=== PATIENT | male | born 1970 | race Hispanic/Latino ===

== ENCOUNTER 2021-10-04 14:23 | Emergency (ER) | payer OTHER, MEDICARE ==
[~2021-10-04] VITALS: Ht 152.4 cm; Wt 68.0 kg
[~2021-10-04 14:23] MED LIST: CEPH500C2 PO; CLON1TAB23 PO; D-ME118S56 PO; DIVA-78 PO; FOLI1TAB26 PO; LEVO500T90 PO; LEVO88TA7 PO; LORA-699 PO; OXYB10TA30 PO; PROM118S5 PO; RISP0.5T66 PO; ROSU10TA22 PO; SERT-440 PO; TAMS0.4C32 PO
[2021-10-04 14:25] VITALS: BP 101/65
[2021-10-04] MEDS ORDERED: 0.9%NACL 1000ML 1,000 ML IV ONE ×2 (15:30→17:04)
[2021-10-04 15:52] LABS: BASOPHILS % (AUTO) 0.3 % (0.0-5.0); EOSINOPHILS % (AUTO) 0.3 % (0.0-8.0); LYMPHOCYTES % (AUTO) 27.5 % (21.0-51.0); MEAN CORPUSCULAR HEMOGLOBIN 34.2 pg (27.0-33.0); MEAN CORPUSCULAR VOLUME 100.5 fL (79-99); MONOCYTES % (AUTO) 9.3 % (3.0-13.0); NEUTROPHILS % (AUTO) 61.8 % (40.0-77.0); PLATELET COUNT (AUTO) 149 K/uL (130-400); RED BLOOD CELL COUNT(AUTO) 3.98 MIL/uL (4.50-6.20); RED CELL DISTRIBUTION WIDTH 13.7 % (11.0-15.5); WHITE BLOOD COUNT (AUTO) 3.6 K/uL (4.8-10.8)
[2021-10-04 16:00] LABS: CARBON DIOXIDE 31 mmol/L (21-32); CHLORIDE 105 mmol/L (101-111); GLOMERULAR FILTR. RATE CALC 83 mL/min (>60); GLUCOSE,RANDOM 96 mg/dL (70-105); POTASSIUM 3.9 mmol/L (3.5-5.1); SODIUM SERUM 144 mmol/L (136-145); UREA NITROGEN, BLOOD 16 mg/dL (7-18)
[2021-10-04 16:13] LABS: ALANINE AMINOTRANSFERASE 30 U/L (12-78); ALBUMIN 2.9 g/dL (3.5-5.0); ASPARTATE AMINOTRANSFERASE 36 U/L (10-37); BILIRUBIN,TOTAL 0.5 mg/dL (0.2-1.0); TOTAL PROTEIN, SERUM 6.9 g/dL (6.0-8.3)
[2021-10-04 16:15] LABS: CRP QUANTITATIVE < 2.00 mg/L (0.00-9.0)
[2021-10-04 16:16] LABS: CREATINE KINASE, TOTAL 495 U/L (21-232)
== END 2021-10-04 18:28 | disposition home or self-care (01) ==
LOC: EDH 14:23
DX: R53.1 Weakness (principal); Z20.822 Contact with and (suspected) exposure to COVID-19; E03.9 Hypothyroidism, unspecified; R41.82 Altered mental status, unspecified; K21.9 Gastro-esophageal reflux disease without esophagitis; Z79.899 Other long term (current) drug therapy; Z90.49 Acquired absence of other specified parts of digestive tract
CPT/HCPCS: 36415; 71045; 80053; 82550; 83735; 84484; 85025; 86140; 87635; 96360; 99284; C9803; J7030

== ENCOUNTER 2021-12-14 08:24 | Emergency (ER) | payer OTHER, MEDICARE ==
[~2021-12-14] VITALS: Ht 160 cm; Wt 59.0 kg
[2021-12-14 08:58] LABS: BASOPHILS % (AUTO) 1.2 % (0.0-5.0); EOSINOPHILS % (AUTO) 0.8 % (0.0-8.0); HEMATOCRIT 42.7 % (42-54); LYMPHOCYTES % (AUTO) 43.7 % (21.0-51.0); MEAN CORPUSCULAR HEMOGLOBIN 34.2 pg (27.0-33.0); MEAN CORPUSCULAR HGB CONC 34.4 g/dL (32.0-36.0); MEAN CORPUSCULAR VOLUME 99.3 fL (79-99); MONOCYTES % (AUTO) 11.3 % (3.0-13.0); NEUTROPHILS % (AUTO) 42.2 % (40.0-77.0); PLATELET COUNT (AUTO) 184 K/uL (130-400); RED CELL DISTRIBUTION WIDTH 13.9 % (11.0-15.5); WHITE BLOOD COUNT (AUTO) 2.5 K/uL (4.8-10.8)
[2021-12-14 09:13] LABS: ALANINE AMINOTRANSFERASE 29 U/L (12-78); ALBUMIN 3.1 g/dL (3.5-5.0); ASPARTATE AMINOTRANSFERASE 17 U/L (10-37); BILIRUBIN,TOTAL 0.7 mg/dL (0.2-1.0); CARBON DIOXIDE 30 mmol/L (21-32); CHLORIDE 104 mmol/L (101-111); CREATININE 1.1 mg/dL (0.5-1.5); GLOMERULAR FILTR. RATE CALC 75 mL/min (>60); GLUCOSE,RANDOM 106 mg/dL (70-105); POTASSIUM 3.9 mmol/L (3.5-5.1); SODIUM SERUM 141 mmol/L (136-145); TOTAL PROTEIN, SERUM 7.5 g/dL (6.0-8.3); UREA NITROGEN, BLOOD 11 mg/dL (7-18)
[2021-12-14 09:18] LABS: VALPROIC ACID < 3 mcg/mL (50-100)
[2021-12-14 10:01] LABS: BASOPHILS % (MANUAL) 3 % (0-2); LYMPHOCYTES % (MANUAL) 48 % (22-44); MAN.DIFF COMMENT-IMPRESSION MANUAL DIFFERENTIAL; MONOCYTES % (MANUAL) 10 % (2-9); PLATELET MORPHOLOGY COMMENT ADEQUATE; REACTIVE LYMPHOCYTES 4 % (0-0); SEGMENTED NEUTROPHILS % 35 % (40-70)
[2021-12-14 10:11] VITALS: BP 104/66
== END 2021-12-14 10:21 | disposition home or self-care (01) ==
LOC: EDH 08:24
DX: R56.9 Unspecified convulsions (principal); T42.75XA Adverse effect of unspecified antiepileptic and sedative-hypnotic drugs, initial encounter; K21.9 Gastro-esophageal reflux disease without esophagitis; Z79.899 Other long term (current) drug therapy; Y92.89 Other specified places as the place of occurrence of the external cause
CPT/HCPCS: 36415; 70450; 80053; 80164; 84484; 85025; 93005

== ENCOUNTER 2022-01-19 15:50 | Emergency (ER) | payer OTHER, MEDICARE ==
[~2022-01-19] VITALS: Ht 152.4 cm; Wt 83.9 kg
[2022-01-19 16:58] LABS: EOSINOPHILS % (AUTO) 0.3 % (0.0-8.0); HEMATOCRIT 37.5 % (42-54); LYMPHOCYTES % (AUTO) 45.9 % (21.0-51.0); MEAN CORPUSCULAR HEMOGLOBIN 34.1 pg (27.0-33.0); MEAN CORPUSCULAR HGB CONC 33.6 g/dL (32.0-36.0); MEAN CORPUSCULAR VOLUME 101.4 fL (79-99); MONOCYTES % (AUTO) 10.8 % (3.0-13.0); NEUTROPHILS % (AUTO) 40.7 % (40.0-77.0); PLATELET COUNT (AUTO) 158 K/uL (130-400); RED CELL DISTRIBUTION WIDTH 14.3 % (11.0-15.5); WHITE BLOOD COUNT (AUTO) 3.1 K/uL (4.8-10.8)
[2022-01-19 17:15] LABS: CREATININE 0.9 mg/dL (0.5-1.5); POTASSIUM 4.4 mmol/L (3.5-5.1)
[2022-01-19 17:24] LABS: ALBUMIN 2.7 g/dL (3.5-5.0); BILIRUBIN,TOTAL 0.2 mg/dL (0.2-1.0); TOTAL PROTEIN, SERUM 7.2 g/dL (6.0-8.3)
[2022-01-19 17:55] VITALS: BP 94/58
== END 2022-01-19 18:16 | disposition home or self-care (01) ==
LOC: EDH 15:50
DX: D64.9 Anemia, unspecified (principal); Z20.822 Contact with and (suspected) exposure to COVID-19; Q90.9 Down syndrome, unspecified; K21.9 Gastro-esophageal reflux disease without esophagitis; Z79.899 Other long term (current) drug therapy
CPT/HCPCS: 36415; 71045; 80053; 82270; 84484; 85025; 87635; 87804 ×2; 99285; C9803

== ENCOUNTER → 2022-03-22 | Outpatient (CLI) | payer OTHER, MEDICARE | END | disposition home or self-care (01) | LOC: SHCH 08:43 | PROVIDERS: ATTEND Internal Medicine Cardiovascular Disease | DX: I35.1 Nonrheumatic aortic (valve) insufficiency (principal); I95.9 Hypotension, unspecified; G40.509 Epileptic seizures related to external causes, not intractable, without status epilepticus; E78.5 Hyperlipidemia, unspecified; E03.9 Hypothyroidism, unspecified; Q90.9 Down syndrome, unspecified | CPT/HCPCS: 93306 ==

== ENCOUNTER 2022-03-25 10:55 | Emergency (ER) | payer OTHER, MEDICARE ==
[~2022-03-25] VITALS: Ht 152.4 cm; Wt 59.0 kg
[2022-03-25 11:27] LABS: BASOPHILS % (AUTO) 0.8 % (0.0-5.0); EOSINOPHILS % (AUTO) 0.5 % (0.0-8.0); HEMATOCRIT 42.5 % (42-54); LYMPHOCYTES % (AUTO) 38.3 % (21.0-51.0); MEAN CORPUSCULAR HEMOGLOBIN 33.7 pg (27.0-33.0); MEAN CORPUSCULAR HGB CONC 33.9 g/dL (32.0-36.0); MEAN CORPUSCULAR VOLUME 99.5 fL (79-99); MONOCYTES % (AUTO) 9.7 % (3.0-13.0); NEUTROPHILS % (AUTO) 50.2 % (40.0-77.0); PLATELET COUNT (AUTO) 200 K/uL (130-400); RED BLOOD CELL COUNT(AUTO) 4.27 MIL/uL (4.50-6.20); RED CELL DISTRIBUTION WIDTH 13.6 % (11.0-15.5); WHITE BLOOD COUNT (AUTO) 3.8 K/uL (4.8-10.8)
[2022-03-25] MEDS ORDERED: 0.9%NACL 1000ML 1,000 ML IV ONE ×2 (11:30→13:30)
[2022-03-25 11:49] LABS: CREATININE 1.1 mg/dL (0.5-1.5); TOTAL PROTEIN, SERUM 7.2 g/dL (6.0-8.3)
[2022-03-25 12:05] LABS: B-TYPE NATRIURETIC PEPTIDE 12 pg/mL (0-100)
[2022-03-25 14:18] VITALS: BP 115/69
== END 2022-03-25 14:31 | disposition home or self-care (01) ==
LOC: EDH 10:55
DX: E86.0 Dehydration (principal); R53.1 Weakness; Z20.822 Contact with and (suspected) exposure to COVID-19; K21.9 Gastro-esophageal reflux disease without esophagitis; Z90.49 Acquired absence of other specified parts of digestive tract; Z79.899 Other long term (current) drug therapy
CPT/HCPCS: 99285; 87635; 84484; 80053; 83880; 85025; 87040 ×2; 83605; 36415; 93005; 84145; C9803

== ENCOUNTER 2022-07-31 13:15 | Emergency (ER) | payer OTHER, MEDICARE ==
[~2022-07-31] VITALS: Ht 154.9 cm; Wt 66.2 kg
[~2022-07-31 13:15] MED LIST changes: +LEVO-70 PO; -LEVO500T90 PO
[2022-07-31] MEDS ORDERED: 0.9%NACL 1000ML 1,000 ML IV ONE (14:00)
[2022-07-31 14:09] LABS: BASOPHILS % (AUTO) 0.4 % (0.0-5.0); EOSINOPHILS % (AUTO) 0.4 % (0.0-8.0); HEMATOCRIT 44.9 % (42-54); LYMPHOCYTES % (AUTO) 14.8 % (21.0-51.0); MEAN CORPUSCULAR HEMOGLOBIN 33.2 pg (27.0-33.0); MEAN CORPUSCULAR HGB CONC 34.3 g/dL (32.0-36.0); MEAN CORPUSCULAR VOLUME 96.8 fL (79-99); NEUTROPHILS % (AUTO) 62.3 % (40.0-77.0); PLATELET COUNT (AUTO) 218 K/uL (130-400); RED BLOOD CELL COUNT(AUTO) 4.64 MIL/uL (4.50-6.20); RED CELL DISTRIBUTION WIDTH 13.7 % (11.0-15.5); WHITE BLOOD COUNT (AUTO) 7.3 K/uL (4.8-10.8)
[2022-07-31 14:18] LABS: CREATININE 1.2 mg/dL (0.5-1.5); POTASSIUM 3.6 mmol/L (3.5-5.1)
[2022-07-31 14:27] LABS: B-TYPE NATRIURETIC PEPTIDE 8 pg/mL (0-100)
[2022-07-31 14:29] LABS: ALBUMIN 2.4 g/dL (3.5-5.0); TOTAL PROTEIN, SERUM 7.7 g/dL (6.0-8.3)
[2022-07-31] MEDS ORDERED: DIPH1TAB PO (16:21)
[2022-07-31 17:40] VITALS: BP 117/59
== END 2022-07-31 17:39 | disposition home or self-care (01) ==
LOC: EDH 13:15
DX: R19.7 Diarrhea, unspecified (principal); K21.9 Gastro-esophageal reflux disease without esophagitis; E03.9 Hypothyroidism, unspecified
CPT/HCPCS: 36415; 71045; 80053; 83880; 84484; 85025; 87046; 87324; 87507; 93005

== ENCOUNTER 2023-05-19 09:50 | Emergency (ER) | payer OTHER, MEDICARE ==
[~2023-05-19] VITALS: Ht 149.9 cm; Wt 61.2 kg
[~2023-05-19 09:50] MED LIST changes: +DIPH1TAB PO
[2023-05-19 09:52] VITALS: BP 99/60; PULSE 87; RESP 20
[2023-05-19 10:37] LABS: INFLUENZA TYPE A Negative For Type A (NEGATIVE); INFLUENZA TYPE B Negative For Type B (NEGATIVE)
[2023-05-19 11:16] LABS: COVID19 (SARS ANTIGEN RAPID) POSITIVE FOR SARS AG (NEGATIVE)
[2023-05-19 11:17] LABS: RAPID GROUP A STREP positive (NEGATIVE)
[2023-05-19] MEDS ORDERED: PENICILLIN G POTASSIUM 5,000,000 UNIT VIAL IM ONE ×2 (11:30→12:00)
== END 2023-05-19 12:38 | disposition home or self-care (01) ==
LOC: EDH 09:50
DX: U07.1 COVID-19 (principal); J02.0 Streptococcal pharyngitis; E03.9 Hypothyroidism, unspecified; K21.9 Gastro-esophageal reflux disease without esophagitis; Z79.899 Other long term (current) drug therapy; Z90.49 Acquired absence of other specified parts of digestive tract
CPT/HCPCS: 99284; 87426; 87880; 87804 ×2; 96372; J2540 ×2

== ENCOUNTER 2023-11-20 08:56 | Emergency (ER) | payer OTHER, MEDICARE ==
[~2023-11-20] VITALS: Ht 144.8 cm; Wt 65.8 kg
[2023-11-20 09:19] LABS: BASOPHILS # (AUTO) 0.02 K/uL (0.00-0.20); BASOPHILS % (AUTO) 0.2 % (0.0-5.0); EOSINOPHILS # (AUTO) 0.03 K/uL (0.00-0.70); EOSINOPHILS % (AUTO) 0.3 % (0.0-8.0); IMMATURE GRANULOCYTE ABSOLUTE 0.07 K/uL (0-1); LYMPHOCYTES # (AUTO) 1.1 K/uL (1.0-4.8); LYMPHOCYTES % (AUTO) 11.6 % (21.0-51.0); MEAN CORPUSCULAR HEMOGLOBIN 32.8 pg (27.0-33.0); MEAN CORPUSCULAR HGB CONC 32.6 g/dL (32.0-36.0); MEAN CORPUSCULAR VOLUME 100.7 fL (79-99); MONOCYTES # (AUTO) 0.8 K/uL (0.1-1.0); MONOCYTES % (AUTO) 8.5 % (3.0-13.0); NEUTROPHILS # (AUTO) 7.7 K/uL (1.8-7.7); NEUTROPHILS % (AUTO) 78.7 % (40.0-77.0); PLATELET COUNT (AUTO) 170 K/uL (130-400); RED BLOOD CELL COUNT(AUTO) 4.27 MIL/uL (4.50-6.20); RED CELL DISTRIBUTION WIDTH 15.3 % (11.0-15.5); WHITE BLOOD COUNT (AUTO) 9.8 K/uL (4.8-10.8)
[2023-11-20 09:31] LABS: CREATININE 1.4 mg/dL (0.5-1.5); POTASSIUM 4.1 mmol/L (3.5-5.1)
[2023-11-20 09:36] LABS: ALBUMIN 2.8 g/dL (3.5-5.0); BILIRUBIN,TOTAL 0.5 mg/dL (0.2-1.0); TOTAL PROTEIN, SERUM 8.3 g/dL (6.0-8.3)
[2023-11-20 10:44] LABS: SARS-CoV-2, RNA, NAAT NEGATIVE SARS CoV-2 (NEGATIVE)
[2023-11-20 10:51] LABS: INFLUENZA TYPE A Negative For Type A (NEGATIVE); INFLUENZA TYPE B Negative For Type B (NEGATIVE)
[2023-11-20] MEDS: 0.9%NACL 1000ML 1,000 ML IV ONE ×2 (11:07→12:03)
[2023-11-20] MEDS: CEFTRIAXONE 1G VIAL IVPB ONE (12:03)
[2023-11-20 14:16] VITALS: BP 126/74; PULSE 78; RESP 17; O2SAT 99
[2023-11-20 14:23] LABS: APPEARANCE,URINE CLEAR (CLEAR); BILIRUBIN,URINE NEGATIVE (NEGATIVE); COLOR,URINE LIGHT-YELLOW (YELLOW); GLUCOSE, URINE (UA) NEGATIVE (NEGATIVE); KETONES,URINE NEGATIVE (NEGATIVE); LEUKOCYTE ESTERASE ,URINE NEGATIVE Leu/uL (NEGATIVE); NITRATE,URINE NEGATIVE (NEGATIVE); OCCULT BLOOD,URINE NEGATIVE (NEGATIVE); PROTEIN,URINE NEGATIVE (NEGATIVE); UROBILINOGEN,URINE 0.2 mg/dL (0.2-1.0)
[2023-11-20 14:26] LABS: ADD UA MICROSCOPIC YES
[2023-11-20 14:27] LABS: SQUAMOUS EPITHELIAL CELL,UR RARE /HPF (0-2)
[2023-11-20] MEDS ORDERED: LACT20PA6 PO (14:29)
[2023-11-20] MEDS ORDERED: LEVO750T68 PO (14:29)
== END 2023-11-20 14:39 | disposition home or self-care (01) ==
LOC: EDH 08:56
DX: K59.00 Constipation, unspecified (principal); J18.9 Pneumonia, unspecified organism; Z20.822 Contact with and (suspected) exposure to COVID-19
CPT/HCPCS: 99285; 74176; 96365; 71045; 87635; 96361; 80053; 85025; 87804 ×2; 81001; 36415; J7030; J0696

== ENCOUNTER 2024-02-17 16:13 | Emergency (ER) | payer OTHER, MEDICARE ==
[~2024-02-17] VITALS: Ht 152.4 cm; Wt 66.2 kg
[~2024-02-17 16:13] MED LIST changes: +CARB10DR OP; -CEPH500C2 PO; -CLON1TAB23 PO; -D-ME118S56 PO; -DIPH1TAB PO; -DIVA-78 PO; +DIVA500T52 PO; +FLUT16H NASAL; +GENT5DRO8 OU; +LACO50TA6 PO; +LACT20PA6 PO; -LEVO-70 PO; +LINA145C PO; +MELA5CAP PO; +Midodrine Hcl PO; +POLY17PO4 PO; -PROM118S5 PO; -RISP0.5T66 PO; +RISP0.5T80 PO; +TIMO5DRO47 OP; +TRAZ-185 PO
[2024-02-17 19:18] LABS: CREATININE 1.3 mg/dL (0.5-1.3); POTASSIUM 4.8 mmol/L (3.5-5.1)
[2024-02-17 19:23] LABS: BILIRUBIN,TOTAL 0.3 mg/dL (0.2-1.0); TOTAL PROTEIN, SERUM 7.9 g/dL (6.0-8.3)
[2024-02-17 19:36] LABS: BASOPHILS # (AUTO) 0.03 K/uL (0.00-0.20); BASOPHILS % (AUTO) 1.1 % (0.0-5.0); EOSINOPHILS # (AUTO) 0.02 K/uL (0.00-0.70); EOSINOPHILS % (AUTO) 0.7 % (0.0-8.0); HEMATOCRIT 38.5 % (42-54); IMMATURE GRANULOCYTE ABSOLUTE 0.01 K/uL (0-1); LYMPHOCYTES # (AUTO) 1.1 K/uL (1.0-4.8); LYMPHOCYTES % (AUTO) 41.3 % (21.0-51.0); MEAN CORPUSCULAR HEMOGLOBIN 33.9 pg (27.0-33.0); MEAN CORPUSCULAR VOLUME 99.7 fL (79-99); MONOCYTES # (AUTO) 0.3 K/uL (0.1-1.0); MONOCYTES % (AUTO) 12.5 % (3.0-13.0); NEUTROPHILS # (AUTO) 1.2 K/uL (1.8-7.7); PLATELET COUNT (AUTO) 118 K/uL (130-400); RED BLOOD CELL COUNT(AUTO) 3.86 MIL/uL (4.50-6.20); RED CELL DISTRIBUTION WIDTH 15.9 % (11.0-15.5); WHITE BLOOD COUNT (AUTO) 2.7 K/uL (4.8-10.8)
[2024-02-17 20:59] LABS: LYMPHOCYTES % (MANUAL) 36 % (22-44); MAN.DIFF COMMENT-IMPRESSION MANUAL DIFFERENTIAL; MONOCYTES % (MANUAL) 8 % (2-9); PLATELET MORPHOLOGY COMMENT ADEQUATE; SEGMENTED NEUTROPHILS % 56 % (40-70); TOTAL CELLS COUNTED 100; WBC MORPHOLOGY CONSISTENT W/DIFF
[2024-02-17 22:10] VITALS: BP 107/62; PULSE 76; RESP 16; O2SAT 97
== END 2024-02-17 22:32 | disposition home or self-care (01) ==
LOC: EDH 16:13
DX: R53.1 Weakness (principal); K21.9 Gastro-esophageal reflux disease without esophagitis; E03.9 Hypothyroidism, unspecified; Z90.49 Acquired absence of other specified parts of digestive tract
CPT/HCPCS: 36415; 71045; 80053; 85025; 87040; 93005

== ENCOUNTER 2025-04-07 15:25 | Emergency (ER) | payer OTHER, MEDICARE ==
[~2025-04-07 15:25] MED LIST changes: -CARB10DR OP; +CLON0.5T23 PEG; -DIVA500T52 PO; +ESOM40CA PEG; +FLUT15.845 NS; -FLUT16H NASAL; -FOLI1TAB26 PO; -GENT5DRO8 OU; +LACO100T2 PEG; -LACO50TA6 PO; +LACT-441 PEG; -LACT20PA6 PO; +LEVO-70 PEG; +LEVO88TA7 PEG; -LEVO88TA7 PO; +LINA145C PEG; -LINA145C PO; -LORA-699 PO; +LORA10TA7 PEG; +MELA10TA2 PEG; -MELA5CAP PO; +MIDO10TA3 PEG; -Midodrine Hcl PO; -OXYB10TA30 PO; -POLY17PO4 PO; +QUET25TA PEG; +QUET50TA PEG; -RISP0.5T80 PO; +RISP1TAB68 PEG; -ROSU10TA22 PO; +ROSU10TA72 PEG; -SERT-440 PO; +TAMS-55 PEG; -TAMS0.4C32 PO; -TIMO5DRO47 OP; -TRAZ-185 PO
--- NOTE | 2025-04-07 16:30 | HMCIMG ---
EXAM: CR Chest, 1 View. CLINICAL HISTORY: cough COMPARISON: February 19, 2025 FINDINGS: LUNGS: Slight basilar atelectasis No lung consolidation PLEURAL SPACES: No evidence of pleural effusion or pneumothorax. MEDIASTINUM: Cardiac size and mediastinal contours within normal limits. BONES: No aggressive appearing osseous lesion seen. IMPRESSION: 1. Slight basilar atelectasis 2. No lung consolidation /Taylor
[2025-04-07 16:32] LABS: APPEARANCE,URINE CLEAR (CLEAR); GLUCOSE, URINE (UA) NEGATIVE (NEGATIVE); LEUKOCYTE ESTERASE ,URINE NEGATIVE Leu/uL (NEGATIVE); NITRATE,URINE NEGATIVE (NEGATIVE); OCCULT BLOOD,URINE NEGATIVE (NEGATIVE); SQUAMOUS EPITHELIAL CELL,UR RARE /HPF (0-2)
--- NOTE | 2025-04-07 17:08 | ERN ---
General Chief Complaint: Other Problems Stated Complaint: PEG TUBE Time Seen by MD: 15:27 History of Present Illness Initial Comments 54-year-old male history of Down syndromes PEG tube dependent presents for move PEG tube. He accident remove this PEG tube earlier today. According to staff, the patient also has had a cough recently and they are concerned he may have a UTI and are asking for a urinalysis and chest x-ray. Patient has no complaints. Allergies: Coded Allergies: No Known Drug Allergies (Unverified Allergy, 01/27/13) Home Meds Active Scripts Levofloxacin (Levofloxacin) 500 Mg Tablet, 1 TAB PEG DAILY for 7 Days, #7 TAB 0 Refills Prov:CORRINACAREY Izabella DATA ENTRY PROCESSOR 02/19/25 Reported Medications Rosuvastatin Calcium (Rosuvastatin Calcium) 10 Mg Tablet, 10 MG PEG HS, TAB 02/16/25 Tamsulosin HCl (Flomax) 0.4 Mg Cap.er.24h, 0.4 MG PEG HS, CAPSULE.DR 02/16/25 Quetiapine Fumarate (Seroquel) 50 Mg Tablet, 50 MG PEG HS, TAB 02/16/25 Quetiapine Fumarate (Seroquel) 25 Mg Tablet, 25 MG PEG DAILY, TAB 02/16/25 Clonazepam (Clonazepam) 0.5 Mg Tab.rapdis, 0.5 MG PEG HS, TAB 02/16/25 Melatonin (Melatonin) 10 Mg Tablet, 10 MG PEG HS, TAB 02/16/25 Midodrine HCl (Midodrine HCl) 10 Mg Tablet, 10 MG PEG TID, TAB 02/16/25 Risperidone (Risperidone) 1 Mg Tab.rapdis, 1 MG PEG BID, TAB 02/16/25 Lacosamide (Vimpat) 100 Mg Tab, 100 MG PEG BID, TAB 02/16/25 Fluticasone Propionate (Fluticasone Propionate) 50 Mcg/Actuation [place].susp, 15.8 ML NS BID 02/16/25 Loratadine (Loratadine) 10 Mg Tablet, 10 MG PEG DAILY, TAB 02/16/25 Lactulose (Lactulose) 10 Gram/15 Ml Solution, 10 GM PEG DAILY, ML 02/16/25 Linaclotide (Linzess) 145 Mcg Capsule, 145 MCG PEG DAILY, CAP 02/16/25 Levothyroxine Sodium (Levothyroxine Sodium) 88 Mcg Tablet, 88 MCG PEG ACBKFST, TAB 02/16/25 Esomeprazole Magnesium (Nexium) 40 Mg Capsule.dr, 40 MG PEG DAILY, CAP 02/16/25 Past Medical History Past Medical History: Hypothyroid, Other Medical History Other: down syndrome. psch disorders, dysphagia, sleep apnea Past Surgical History: Cholecystectomy Surgical History Other: PEG TUBE Family History Family History: Negative Social History Social History: Negative, Lives in Assisted Living ROS Dictation CONSTITUTIONAL: No chills, no fever, no weakness, no diaphoresis, no malaise. HEAD/FACE: No signs of trauma. EENT: No eye pain, no blurred vision, no tearing, no double vision, no ear pain, no ear discharge, no nose pain, no nasal congestion, no throat pain, no throat swelling, no mouth pain. RESPIRATORY: No cough, no orthopnea, no SOB, no stridor, no wheezing. CARDIOVASCULAR: No chest pain, no edema, no palpitations, no syncope. GASTROINTESTINAL/ABDOMINAL: No abdominal pain, no constipation, no diarrhea, no nausea, no vomiting. GENITOURINARY: No abnormal discharge, no dysuria, no frequent urination, no hematuria. No complaints of pain in the genitals. MUSCULOSKELETAL: No back pain, no gout, no joint pain, no joint swelling, no muscle pain, no muscle stiffness, no neck pain. INTEGUMENTARY: No change in color, no change in hair/nails, no dryness, no lesion, no lumps, no rash. NEUROLOGICAL/PSYCH: No anxiety, not depressed, no emotional problem, no headache, no numbness, no pre-existing deficit, no history of seizures, no tremors, no weakness. HEMATOLOGIC/LYMPHATIC: Not anemic, no history of blood clots, no apparent bleeding, no bruising, glands not swollen. All Systems Negative, Except as Noted. Physical Exam Physical Exam Dictation VITAL SIGNS: Reviewed. GENERAL APPEARANCE: Alert, oriented x3, no acute distress, obese. HEAD AND FACE: Non-traumatic. EYES: PERRL, pink conjunctivas, eyelid no trauma, anterior chamber clear. EARS: Pinnas intact and no signs of trauma or erythema. Ear canals clear and no discharge. TMs no erythema. NOSE: No discharge, no bleeding. OROPHARYNX: Mouth normal, teeth no caries, tongue pink. Pharynx clear, no erythema. Tonsils no exudates, no abscesses noted. Mucous membrane moist. NECK: Supple, non-tender, no thyromegaly, no masses, no JVD, no bruits. BREAST: Deferred. CHEST: No tenderness, no crepitus, no paradoxical movement, no retractions. LUNGS: Clear, well-ventilated, symmetric, no rales, no wheezing, no rhonchi, no stridor, good breath sounds bilaterally. HEART: Regular rate, regular rhythm, no murmur, no gallops. VASCULAR: No peripheral edema. ABDOMEN: Soft, positive bowel sounds, nondistended, no guarding, nontender, no rebound, no masses no hepatomegaly, no splenomegaly, no Bass's sign, no hernias. RECTAL: Deferred. GENITAL: Deferred. NEUROLOGICAL: Normal speech, gross motor function intact, gross sensory function intact. MUSCULOSKELETAL: Neck nontender, full range of motion, back nontender, full range of motion. EXTREMITIES: Nontender, full range of motion. SKIN: Color pink, dry, no turgor, no rash, no lacerations, no abrasions, no contusions. LYMPHATICS: Deferred. Results Laboratory and Microbiology Lab and Micro Result Laboratory Tests Test 04/07/25 16:25 Urine Color LIGHT-YELLOW (YELLOW) Urine Appearance CLEAR (CLEAR) Urine pH 6.0 (5.0-8.0) Urine Specific [place] 1.015 (1.001-1.031) Urine Protein NEGATIVE mg/dL (NEGATIVE) Urine Glucose (UA) NEGATIVE mg/dL (NEGATIVE) Urine Ketones NEGATIVE mg/dL (NEGATIVE) Urine Occult Blood NEGATIVE (NEGATIVE) Urine Nitrate NEGATIVE (NEGATIVE) Urine Bilirubin NEGATIVE mg/dL (NEGATIVE) Urine Urobilinogen 0.2 mg/dL (0.2-1.0) Urine Leukocyte Esterase NEGATIVE Justin/uL Urine RBC 0-1 /HPF (0-1) Urine WBC 0-1 /HPF (0-1) Urine Squamous Epithelial Cells RARE /HPF (0-2) Urine Bacteria None /HPF (None Seen) MDM CC: Peg tube removal Historian: Patient is provider, patient does not provide history does not communicate due to Down syndrome Limitations by social determinants of health: None Differential diagnosis: Pulled PEG tube Patient also reports cough and possible ear in infection No labs indicated Vital signs stable Urinalysis unremarkable per my independent interpretation Chest x-ray normal per my independent interpretation PEG tube exchange without complication We will DC ED Course Orders Procedure Category Date Status Time Urinalysis LAB 04/07/25 Complete W/Microscopic 15:48 Chest 1vw RAD 04/07/25 Resulted 15:48 *Nursing CPOE 04/07/25 Transmitted Communication: 15:48 Vital Signs Date Time Temp Pulse Resp B/P (MAP) Pulse Ox O2 Delivery O2 Flow Rate FiO2 04/07/25 15:46 60 18 125/64 100 Room Air* 0 21 04/07/25 15:37 60 18 125/64 100 Room Air 0 DX & DISP Disposition: Discharge Departure Impression: Primary Impression: PEG (percutaneous endoscopic gastrostomy) adjustment/replacement/removal Additional Impression: Cough Condition: Stable Additional Instructions: The PEG tube was replaced here in the ER. He has a 20 [place] PEG tube. You can start using it today. The chest x-ray is clear. His oxygen level is clear. His cough is likely due to a viral upper respiratory syndrome. You can give [id number] cough medicines as needed. The urinalysis is normal. Please return to the emergency department as needed. Referrals: POOJA SIM DO (PCP) DEJA BALL DO Apr 07, 2025 17:08
[2025-04-07 17:40] VITALS: BP 121/64; PULSE 60; RESP 18; TEMP 97.9; O2SAT 100
== END 2025-04-07 17:45 | disposition home or self-care (01) ==
LOC: EDH 15:25
DX: K94.23 Gastrostomy malfunction (principal); R05.9 Cough, unspecified; E03.9 Hypothyroidism, unspecified; Z79.899 Other long term (current) drug therapy; Z90.49 Acquired absence of other specified parts of digestive tract
CPT/HCPCS: 43762; 71045; 81001; 99284

== ENCOUNTER 2025-08-18 10:14 | Inpatient (IN) | payer OTHER, MEDICARE ==
[2025-08-18] VITALS (7 sets, daily range): BP systolic 109; BP diastolic 62; PULSE 55–58; RESP 14–20; TEMP 97.6; O2SAT 96–98
[~2025-08-18] VITALS: Ht 152.4 cm; Wt 72.6 kg
--- NOTE | 2025-08-18 10:27 | ERN ---
ED Note History of Present Illness Stated Complaint: NEAR SYNCOPE, COUGH Chief Complaint: Syncope Time Seen by MD: 10:17 Dictation: PATIENT IS A 54-YEAR-OLD NONVERBAL DOWN SYNDROME PATIENT COMING FROM A LOCAL CARE CENTER WITH COMPLAINTS OF HAVING A NEAR SYNCOPAL EPISODE THIS MORNING WHILE COUGHING. PER THE ATTENTION WHO IS WITH THE HIM IN HIS THE [facility]IEF [facility]ISTOR[facility], HE HAS HAD A COUGH FOR TWO WEEKS. HE DOES HAVE A G-TUBE AND WAS DIAGNOSED TWO WEEKS AGO WITH ASPIRATION PNEUMONIA AND JUST GOT OFF ANTIBIOTICS SEVERAL DAYS AGO. HE DOES NOT HAVE ANY FEVER CHILLS AT THE [facility]. SHE STATES HIS PRIMARY CARE DOCTOR [facility]. PATIENT IS UNABLE TO PROVIDE ANY HISTORY Allergies: Coded Allergies: No Known Drug Allergies (Unverified Allergy, 01/27/13) Home Meds Reported Medications Quetiapine Fumarate (Quetiapine Fumarate) 50 Mg Tablet, 50 MG PO HS, TAB 08/18/25 Levetiracetam (Keppra) 100 Mg/Ml Solution, 5 ML PO BID for 30 Days, #300 ML 0 Refills 08/18/25 Cyanocobalamin (Vitamin B-12) (Vitamin B12) 2,500 Mcg Tablet, 1000 MCG GT DAILY, TAB 05/29/25 Quetiapine Fumarate (Quetiapine Fumarate) 25 Mg Tablet, 25 MG GT DAILY, TAB 05/29/25 Loratadine (Loratadine) 10 Mg Tablet, 1 TAB GT DAILY for allergy symptoms for 30 Days, #30 TAB 0 Refills 05/29/25 Lactulose (Lactulose) 10 Gram/15 Ml Solution, 15 ML GT DAILY for constipation, #500 ML 0 Refills 05/29/25 Folic Acid (Folvite) 1 Mg Tab, 1 TAB GT DAILY for 30 Days, #30 TAB 0 Refills 05/29/25 Risperidone (Risperdal) 1 Mg Tablet, 1 MG GT BID, TAB 05/29/25 Carboxymethylcellulos/Glycerin (Refresh Optive Eye Drops) 0.5 %-0.9 % Drops, 1 DROP OP BID for dry eyes for 30 Days, #30 ML 0 Refills 05/29/25 Lacosamide (Lacosamide) 50 Mg Tablet, 50 MG GT BID, TAB 05/29/25 Albuterol Sulfate (Albuterol Sulfate) 1.25 Mg/3 Ml Vial.neb, 1.25 MG IH [id number] PRN for SHORTNESS OF BREATH, INH 05/29/25 Timolol Maleate (Timoptic 0.5% Ophth Soln) 0.5 % Opsol, 1 DROP OS DAILY, #5 ML 0 Refills 05/29/25 Multivitamin/Iron/Folic Acid (Certavite-Antioxidant Tablet) 18 Mg Iron-400 Mcg Tablet, 1 EACH GT DAILY, TAB 05/29/25 Rosuvastatin Calcium (Rosuvastatin Calcium) 10 Mg Tablet, 10 MG PEG HS, TAB 02/16/25 Tamsulosin HCl (Flomax) 0.4 Mg Cap.er.24h, 0.4 MG PEG HS, CAPSULE.DR 02/16/25 Clonazepam (Clonazepam) 0.5 Mg Tab.rapdis, 0.5 MG PEG HS, TAB 02/16/25 Melatonin (Melatonin) 10 Mg Tablet, 10 MG PEG HS, TAB 02/16/25 Midodrine HCl (Midodrine HCl) 10 Mg Tablet, 10 MG PEG TID, TAB 02/16/25 Fluticasone Propionate (Fluticasone Propionate) 50 Mcg/Actuation Turner.susp, 15.8 ML NS BID 02/16/25 Linaclotide (Linzess) 145 Mcg Capsule, 145 MCG PEG DAILY, CAP 02/16/25 Levothyroxine Sodium (Levothyroxine Sodium) 88 Mcg Tablet, 88 MCG PEG ACBKFST, TAB 02/16/25 Discontinued Reported Medications Quetiapine Fumarate (Quetiapine Fumarate) 100 Mg Tablet, 1 TAB GT HS for 30 Days, #30 TAB 0 Refills 05/29/25 Divalproex Sodium (Depakote) 500 Mg Tablet.dr, 500 MG GT HS, TAB 05/29/25 Risperidone (Risperidone) 1 Mg Tab.rapdis, 1 MG PEG BID, TAB 02/16/25 Loratadine (Loratadine) 10 Mg Tablet, 10 MG PEG DAILY, TAB 02/16/25 Esomeprazole Magnesium (Nexium) 40 Mg Capsule., 40 MG PEG DAILY, CAP 02/16/25 Discontinued Scripts Doxycycline Monohydrate (Doxycycline Monohydrate) 100 Mg Capsule, 1 CAP PO BID for 7 Days, #14 CAP 0 Refills Prov:REMBERTO YAP PAC 06/01/25 Cefdinir (Cefdinir) 300 Mg Capsule, 1 CAP PO BID for 7 Days, #14 CAP 0 Refills Prov:REMBERTO YAP PAC 06/01/25 Past Medical History Past Medical History: Hypothyroid, Other Additional Past Medical Hx: DOWN SYNDROME, HYPOTENSION Surgical History: Unknown Surgical History Other: PEG TUBE Family History: Negative Social History: Negative, Lives in Assisted Living RN Note Reviewed/Agreed w/PFSH: Yes Review of System Dictation CONSTITUTIONAL: NEGATIVE EXCEPT FOR HPI GB W HEAD/FACE: NEGATIVE EXCEPT FOR HPI EENT: NEGATIVE EXCEPT FOR HPI RESPIRATORY: NEGATIVE EXCEPT FOR HPI CONGESTED COUGH GASTROINTESTINAL/ABDOMINAL: NEGATIVE EXCEPT FOR HPI GENITOURINARY: NEGATIVE EXCEPT FOR HPI MUSCULOSKELETAL: NEGATIVE EXCEPT FOR HPI INTEGUMENTARY: NEGATIVE EXCEPT FOR HPI NEUROLOGICAL/PSYCH: NEGATIVE EXCEPT FOR HPI HEMATOLOGIC/LYMPHATIC: NEGATIVE EXCEPT FOR HPI ALL SYSTEMS NEGATIVE, EXCEPT NOTED ABOVE. 13 POINT REVIEW OF SYSTEMS ASSESSED AND ALL NEGATIVE EXCEPT FOR ABOVE. Initial Vital Sign VS Vital Signs Date Time Temp Pulse Resp B/P (MAP) Pulse Ox O2 Delivery O2 Flow Rate FiO2 08/18/25 10:16 97.2 75 14 83/47 98 Room Air 0 08/18/25 10:57 21 Physical Exam Dictation VITAL SIGNS REVIEWED GENERAL APPEARANCE: ALERT, ORIENTED . NONVERBAL AND UNABLE TO PROVIDE ANY HISTORY. THE CARE PROVIDER FROM THE [facility] IS THE CHIEF HISTORIAN HEAD AND FACE: NON-TRAUMATIC. EYES: PERRL, PINK CONJUNCTIVAS, EYELID NO TRAUMA, ANTERIOR CHAMBER WITH ARCUS SENILIS. EARS: PINNAS INTACT AND NO SIGNS OF TRAUMA OR ERYTHEMA EAR CANALS CLEAR AND NO DISCHARGE TM NO ERYTHEMA NOSE: NO DISCHARGE, NO BLEEDING. OROPHARYNX: MOUTH NORMAL, TONGUE PINK, PHARYNX CLEAR,NO ERYTHEMA, TONSILS NO EXUDATES, NO ABSCESSES NOTED, MUCOUS MEMBRANE MOIST NECK: SUPPLE, NON-TENDER, NO THYROMEGALY, NO MASSES, NO JVD, NO BRUITS BREAST:DEFERRED CHEST:NO TENDERNESS, NO CREPITUS, NO PARADOXICAL MOVEMENT, NO RETRACTIONS LUNGS:CLEAR, WELL-VENTILATED, SYMMETRIC, RHONCHI NOTED TO RIGHT UPPER LOBE. CONGESTED COUGH NOTED HEART: REGULAR RATE, REGULAR RHYTHM, NO MURMUR, NO GALLOPS VASCULAR: NO PERIPHERAL EDEMA, ABDOMEN: SOFT, POSITIVE BOWEL SOUNDS, NONDISTENDED, NO GUARDING, NONTENDER, NO REBOUND, NO MASSES NO HEPATOMEGALY, NO SPLENOMEGALY, NO ABDI'S SIGN, NO HERNIAS. G-TUBE IN PLACE WITH BINDER ON RECTAL: DEFERRED GENITAL: DEFERRED NEUROLOGICAL:, MOTOR FUNCTION INTACT, SENSORY FUNCTION INTACT MUSCULOSKELETAL: NECK NONTENDER, FULL RANGE OF MOTION, BACK NONTENDER, FULL RANGE OF MOTION, EXTREMITIES: NONTENDER, FULL RANGE OF MOTION SKIN: COLOR PINK, DRY, NO TURGOR, NO RASH, NO LACERATIONS, NO ABRASIONS, NO CONTUSIONS. LYMPHATIC: DEFERRED Results (Laboratory/Radiology) Laboratory/Radiology Laboratory Tests Test 08/18/25 10:33 08/18/25 10:34 08/19/25 04:26 08/20/25 04:27 SARS-CoV-2 Antigen (Rapid) PRESUMPTIVE NEGATIVE White Blood Count 7.1 K/uL (4.8-10.8) 3.8 K/uL (4.8-10.8) #L 3.3 K/uL (4.8-10.8) L Red Blood Count 3.47 MIL/uL (4.50-6.20) L 3.26 MIL/uL (4.50-6.20) L 3.22 MIL/uL (4.50-6.20) L Hemoglobin 12.1 g/dL (14.0-18.0) L 11.2 g/dL (14.0-18.0) L 11.1 g/dL (14.0-18.0) L Hematocrit 35.9 % (42-54) L 34.6 % (42-54) L 33.3 % (42-54) L Mean Corpuscular Volume 103.5 fL (79-99) H 106.1 fL (79-99) H 103.4 fL (79-99) H Mean Corpuscular Hemoglobin 34.9 pg (27.0-33.0) H 34.4 pg (27.0-33.0) H 34.5 pg (27.0-33.0) H Mean Corpuscular Hemoglobin Concent 33.7 g/dL (32.0-36.0) 32.4 g/dL (32.0-36.0) 33.3 g/dL (32.0-36.0) Red Cell Distribution Width 14.9 % (11.0-15.5) 14.6 % (11.0-15.5) 14.6 % (11.0-15.5) Platelet Count 169 K/uL (130-400) 136 K/uL (130-400) 153 K/uL (130-400) Mean Platelet Volume 12.7 fL (7.5-10.5) H 12.1 fL (7.5-10.5) H 12.5 fL (7.5-10.5) H Immature Granulocyte % (Auto) 0.7 % (0-1) Neutrophils (%) (Auto) 78.9 % (40.0-77.0) H Lymphocytes (%) (Auto) 14.0 % (21.0-51.0) L Monocytes (%) (Auto) 5.7 % (3.0-13.0) Eosinophils (%) (Auto) 0.6 % (0.0-8.0) Basophils (%) (Auto) 0.1 % (0.0-5.0) Neutrophils # (Auto) 5.6 K/uL (1.8-7.7) Lymphocytes # (Auto) 1.0 K/uL (1.0-4.8) Monocytes # (Auto) 0.4 K/uL (0.1-1.0) Eosinophils # (Auto) 0.04 K/uL (0.00-0.70) Basophils # (Auto) 0.01 K/uL (0.00-0.20) Absolute Immature Granulocyte (auto 0.05 K/uL (0-1) Nucleated Red Blood Cells 0.0 % (0.0-0.19) 0.0 % (0.0-0.19) 0.0 % (0.0-0.19) Sodium Level 142 mmol/L (136-145) 143 mmol/L (136-145) 141 mmol/L (136-145) Potassium Level 3.6 mmol/L (3.5-5.1) 4.0 mmol/L (3.5-5.1) 4.1 mmol/L (3.5-5.1) Chloride Level 105 mmol/L (101-111) 109 mmol/L (101-111) 108 mmol/L (101-111) Carbon Dioxide Level 33 mmol/L (21-32) H 27 mmol/L (21-32) 28 mmol/L (21-32) Blood Urea Nitrogen 20 mg/dL (7-18) H 14 mg/dL (7-18) 19 mg/dL (7-18) H Creatinine 0.8 mg/dL (0.5-1.3) 0.8 mg/dL (0.5-1.3) 0.9 mg/dL (0.5-1.3) Glomerular Filtration Rate Calc 105 mL/min (>90) 105 mL/min (>90) 101 mL/min (>90) Random Glucose 122 mg/dL (70-105) H 67 mg/dL (70-105) L 85 mg/dL (70-105) Lactic Acid Level 1.5 mmol/L (0.8-2.5) Total Calcium 8.6 mg/dL (8.5-10.1) 8.3 mg/dL (8.5-10.1) L 8.2 mg/dL (8.5-10.1) L Troponin I High Sensitivity 14 ng/L (4-75) B-Type Natriuretic Peptide 60 pg/mL (0-100) Procalcitonin 0.12 ng/mL (0.05-0.5) Red Blood Cell Morphology See comments 1200/BRONCHIAL PNEUMONIA Labs Reviewed?: Yes ED Course ED Course Orders Procedure Category Date Status Time Blood Cult ALIYAH 08/18/25 In Process 10:24 Lactic Acid LAB 08/18/25 Complete 10:24 Covid19 (Sars Antigen LAB 08/18/25 Complete Rapid) 10:24 B-Type Natriuretic LAB 08/18/25 Complete Peptide 10:24 Cbc With Differential LAB 08/18/25 Complete 10:24 Chest 1vw RAD 08/18/25 Resulted 10:24 12 Lead Ekg Tracing- EKG 08/18/25 Complete Technical 10:24 Troponin I High LAB 08/18/25 Complete Sensitivity 10:24 Basic Metabolic Panel LAB 08/18/25 Complete 10:24 0.9%Nacl 1000ml (Ns PHA 08/18/25 Complete 1000ml) 10:30 Midodrine Hcl 5 Mg PHA 08/18/25 Complete Tablet (Proamatine 5 10:30 Azithromycin 500mg+Ns PHA 08/18/25 Complete 250ml (Azithromyci 11:44 Ceftriaxone 2gm Vial PHA 08/18/25 Complete (Rocephin 2gm Inj) 11:44 Albuterol 0.083% PHA 12/3/25 Complete 2.5mg/3ml (Proventil 12:00 Edm Admit Bridge Order ADM 08/18/25 Transmitted 12:12 Famotidine 20mg Tab PHA 08/18/25 Complete (Pepcid 20mg Tab) 21:00 Diphenhydramine Hcl PHA 08/18/25 In Process (Benadryl Cap) 12:30 Diphenhydramine Hcl PHA 08/18/25 In Process (Benadryl Inj) 12:30 Acetaminophen 325 Tab PHA 08/18/25 In Process (Tylenol 325mg Tab 12:30 Acetaminophen 325 Tab PHA 08/18/25 In Process (Tylenol 325mg Tab 12:30 Ondansetron 4mg Inj PHA 08/18/25 In Process (Zofran 4mg Inj) 12:30 Zolpidem Tartrate 5 PHA 08/18/25 In Process Mg Tab (Ambien) 12:30 Mag/Alum/Simeth 30ml PHA 08/18/25 In Process (Maalox Plus 30ml) 12:30 Lactulose 20 Gm/30 Ml PHA 08/18/25 In Process Udcup (Constulose 12:30 Nitroglycerin 0.4mg PHA 08/18/25 In Process Sl Tab (Nitrostat) 12:30 Guaifenesin-Dm PHA 08/18/25 In Process 200/20mg 10ml 12:30 Ipratropium/Albuterol PHA 08/18/25 In Process Neb (Duoneb) 18:00 Famotidine 20mg Vial PHA 08/18/25 Complete (Pepcid 20mg Vial) 21:00 Guaifenesin Sug-Lb PHA 08/18/25 In Process 100 Mg/5ml (Robituss 12:30 Loperamide Hcl 2 Mg PHA 08/18/25 In Process Cap (Imodium) 12:30 Docusate Sodium 100 PHA 08/18/25 In Process Mg Cap (Colace 100mg 12:30 Polyethylene Glycol PHA 08/18/25 In Process 3350 (Miralax 3350 1 12:30 Alprazolam 0.5mg PHA 08/18/25 In Process (Xanax 0.5mg) 12:30 Lidocaine Hcl 2% PHA 08/18/25 In Process Viscous (Lidocaine Hcl 12:30 Natural Tears 15ml PHA 08/18/25 In Process (Artificial Tears) 12:30 Benzocaine/Menth/Cetylpyrd PHA 08/18/25 In Process Cl (Cepacol S 12:30 Admit Orders ADM 08/18/25 Transmitted 12:14 Activity: Bed Rest CPOE 08/18/25 Transmitted 12:14 Respiratory Cult ALIYAH 08/18/25 Logged W/Gram Stain 12:14 Procalcitonin LAB 08/18/25 Complete 12:14 Initiate DAVID 08/18/25 In Process Hyperglycemia Protoco 12:14 Azithromycin 500mg+Ns PHA 08/18/25 Complete 250ml (Azithromyci 12:30 Folic Acid 1 Mg PHA 08/19/25 In Process Tablet (Folic Acid 1 09:00 Lacosamide (Vimpat) PHA 08/18/25 In Process 21:00 Levothyroxine 88 Mcg PHA 08/19/25 In Process Tablet (Synthroid 8 06:30 Loratadine 10 Mg PHA 08/19/25 In Process (Loratadine 10 Mg) 09:00 Quetiapine Fumarate PHA 08/19/25 In Process 25 Mg Tab (Seroquel 09:00 Risperidone 1 Mg PHA 08/18/25 In Process Tablet (Risperdal) 21:00 Tamsulosin Hcl PHA 08/18/25 In Process (Flomax) 21:00 Timolol Maleate 0.5% PHA 08/19/25 In Process (Timoptic) 09:00 Home Medication (Home PHA 08/18/25 In Process Medication) 21:00 Clonazepam 0.5 Mg PHA 08/18/25 In Process (Clonazepam 0.5 Mg) 21:00 Cyanocobalamin PHA 08/19/25 In Process (Vitamin B-12) 09:00 Fluticasone PHA 08/18/25 In Process Propionate 50mcg 21:00 Lactulose 20 Gm/30 Ml PHA 08/19/25 In Process Udcup (Constulose 09:00 Levetiracetam 100 PHA 08/18/25 In Process Mg/Ml 5 Ml U (Keppra S 21:00 Home Medication (Home PHA 08/19/25 In Process Medication) 09:00 Melatonin (Melatonin) PHA 08/18/25 In Process 21:00 Midodrine Hcl 5 Mg PHA 08/18/25 In Process Tablet (Proamatine 5 14:00 Home Medication (Home PHA 08/19/25 In Process Medication) 09:00 Quetiapine Fumarate PHA 08/18/25 In Process 25 Mg Tab (Seroquel 21:00 Atorvastatin 20mg PHA 08/18/25 In Process (Lipitor 20mg) 21:00 Ceftriaxone 2gm Vial PHA 08/19/25 Complete (Rocephin 2gm Inj) 12:30 Zosyn 3.375gm+Ns 50ml PHA 08/18/25 In Process (Zosyn 3.375gm+Ns 14:00 Basic Metabolic Panel LAB 08/19/25 Complete 04:00 Cbc Without LAB 08/19/25 Complete Differential 04:00 Sodium Chloride 3% PHA 08/18/25 Complete Inh (Sodium Chloride 16:34 Influenza Type A & B, LAB 08/18/25 Logged Rapid 16:43 Doxycycline 100mg+Ns PHA 08/18/25 Complete 250ml (Doxycycline 17:00 Sodium Chloride 3% PHA 08/18/25 Complete Inh (Sodium Chloride 18:10 Doxycycline 100mg+Ns PHA 08/18/25 In Process 250ml (Doxycycline 19:00 Eval Request For DIETOTHR 08/18/25 Transmitted Dietitian 19:43 Sodium Chloride 3% PHA 08/18/25 Complete Inh (Sodium Chloride 22:24 Famotidine 20mg Vial PHA 08/19/25 In Process (Pepcid 20mg Vial) 09:00 Tube Feeding DIET 08/19/25 Transmitted [facility] PHA 08/19/25 Complete Communication (Lace 11:00 Change Admit CM 08/19/25 Transmitted Inpatient Status 11:15 Basic Metabolic Panel LAB 08/20/25 Complete 04:00 Cbc Without LAB 08/20/25 Complete Differential 04:00 Current Medications Medications (Trade) Dose Ordered Sig/Kalyan Route PRN Reason Start Time Stop Time Status Last Admin Dose Admin Albuterol Sulfate (Proventil 0.083% 2.5mg/3ml) 2.5MG ONCE ONCE IH 08/18/25 12:00 08/18/25 12:01 DC 08/18/25 13:18 Azithromycin 250 ml @ 250 mls/hr Q24H STAT IVPB 08/18/25 11:44 08/18/25 12:43 DC 08/18/25 12:00 Ceftriaxone Sodium (Rocephin 2gm Inj) 2 gm ONCE STAT IVPB 08/18/25 11:44 08/18/25 11:47 DC 08/18/25 11:58 Midodrine (PROAMatine 5 MG TABLET) 10 mg ONCE ONCE PO 08/18/25 10:30 08/18/25 10:31 DC 08/18/25 10:38 Sodium Chloride 1,000 ml @ 0 mls/hr ONCE ONCE IV 08/18/25 10:30 08/18/25 10:31 DC 08/18/25 10:41 Vital Signs Date Time Temp Pulse Resp B/P (MAP) Pulse Ox O2 Delivery O2 Flow Rate FiO2 08/20/25 06:26 59 18 08/20/25 06:26 59 18 N/A Room Air 08/20/25 04:00 98.2 55 12 110/43 95 Room Air 08/20/25 00:00 98.4 64 12 111/56 93 Room Air 08/19/25 20:21 98.1 63 20 108/59 96 Room Air 08/19/25 20:00 98 Room Air* 0 08/19/25 18:29 62 18 08/19/25 18:29 62 18 N/A Room Air 08/19/25 16:00 97.9 68 20 113/52 99 Room Air 08/19/25 12:00 97.9 62 20 117/62 95 Room Air 08/19/25 11:13 56 18 08/19/25 11:13 56 18 N/A Room Air 08/19/25 08:00 98.1 51 20 104/70 96 Room Air 08/19/25 08:00 96 Room Air* 0 08/19/25 06:53 55 18 N/A Room Air 08/19/25 06:50 55 18 08/19/25 04:00 98.1 58 18 112/73 98 08/19/25 00:00 97.3 57 18 98/63 93 Room Air 08/18/25 23:29 58 18 08/18/25 20:00 97 Room Air* 0 08/18/25 20:00 97.5 55 18 109/62 97 Room Air 08/18/25 18:37 56 20 08/18/25 18:36 56 18 N/A Room Air 08/18/25 16:30 96 Room Air* 0 08/18/25 14:53 97.9 64 14 101/60 99 Room Air* 0 08/18/25 13:51 58 14 N/A Room Air 21 08/18/25 12:10 58 18 08/18/25 12:01 97.5 55 12 92/43 98 Room Air* 0 21 08/18/25 10:57 97.9 63 12 95/40 99 Room Air* 0 21 08/18/25 10:16 97.2 75 14 83/47 98 Room Air 0 1200/SPOKE WITH THE [facility]. SHE STATES PATIENT JUST CAME OFF FIVE DAYS OF AZITHROMYCIN AND PREDNISONE HE HAS BEEN RUNNING FEVERS INTERMITTENTLY WITH A CONGESTED COUGH. I ADVISED HER THAT I WOULD LIKE TO PUT HIM IN FOR BRONCHIAL PNEUMONIA AND RESPIRATORY SUPPORT SHE AGREED1 1212/SPOKE WITH LISSET NOBLES AND REVIEWED EKG LABS CHEST X-RAY AND OUTPATIENT TREATMENT FAILURE TO INCLUDE AZITHROMYCIN AND PREDNISONE HE AGREED TO ADMIT. Medical Decision Making MDM MDM: DIFFERENTIAL DIAGNOSIS: ACS/AMI/ELECTROLYTE IMBALANCE/DEHYDRATION/PNEU MONIA/BRONCHITIS/SARS COVID/TREATMENT [place] RATIONALE: TESTS CONSIDERED AND ORDERED SECONDARY TO SHARED DECISION MAKING INCLUDE: LABS, ECG AND RADIOLOGY PREVIOUS OUTSIDE RECORDS REVIEWED: OLD ER VISI MILD MEDICATIONS-PER MEDICATION RECONCILIATION NEED FOR HOSPITALIZATION: PATIENT DOES MEET CRITERIA FOR HOSPITALIZATION. PATIENT WILL NEED TO BE ADMITTED TO THE HOSPITAL FOR RESPIRATORY SUPPORT IV ANTIBIOTICS NEED FOR EMERGENCY MAJOR/MINOR SURGERY: NO THERE ARE NO SOCIAL CONCERNS WITH THIS PATIENT. NONVERBAL PRESCRIPTION DRUG MANAGEMENT PRESCRIPTIONS WILL INCLUDE SYMPTOMATIC CARE PATIENT'S PRIOR EXTERNAL MEDICAL RECORDS FROM OTHER ER VISITS WERE REVIEWED BY ME INDICATED. PRIOR TESTING AND RESULTS FROM PREVIOUS VISITS WERE REVIEWED. PRIOR TESTS WERE TAKEN INTO ACCOUNT WITH MEDICAL DECISION MAKING AND RESOURCE UTILIZATION, INDEPENDENT HISTORIAN/HISTORIANS WERE USED TO OBTAIN COMPLETE MEDICAL HISTORY. I INDEPENDENTLY INTERPRETED THE TEST THAT WERE PERFORMED, RESULTS WERE REVIEWED BY ME AND CONSIDERED FINDINGS ON RADIOLOGY IF ORDERED. MEDICAL MANAGEMENT AND EXAMINATION INTERPRETATION DISCUSSIONS WERE HAD BY ME WITH OTHER QUALIFIED HEALTHCARE PROFESSIONALS INDICATED FOR THE PATIENT'S CARE. DX & DISP Disposition: Inpatient Decision to Admit Time: 12:04 Departure Impression: Primary Impression: Bronchial pneumonia Additional Impressions: Failure of outpatient treatment, Dehydration, Hyperglycemia due to diabetes mellitus, Down syndrome Condition: Stable Referrals: POOJA SIM DO (PCP) ATTESTATION BY PHYSICIAN I PERFORMED THE SUBSTANTIVE PORTION OF THE VISIT. I HAVE REVIEWED AND PERSONALLY MADE AND APPROVED THE MANAGEMENT PLAN THAT IS DOCUMENTED IN THE NOTE BY MYSELF FOR THE A JOLLY RAMIREZP Aug 18, 2025 10:27 JOSSIE RODRIGUEZ MD Aug 20, 2025 07:19
--- NOTE | 2025-08-18 10:30 | NUR ---
SPOKE TO JOHNNA CURRIE, NURSE FOR PATIENT, AND SHE STATED THAT PATIENT RUNS A LOW BP AT [facility], SHE STATES HIS BASELINE IS WITH SYTOLIC IN THE 90S, PATIENT RESTING IN BED, PROVIDER AT BEDSIDE
[2025-08-18] MEDS: 0.9%NACL 1000ML 1,000 ML IV ONE (10:41)
[2025-08-18 10:54] LABS: IMMATURE GRANULOCYTE ABSOLUTE 0.05 K/uL (0-1); NUCLEATED RED BLOOD CELLS 0.0 % (0.0-0.19); PLATELET COUNT (AUTO) 169 K/uL (130-400); RED BLOOD CELL COUNT(AUTO) 3.47 MIL/uL (4.50-6.20); RED CELL DISTRIBUTION WIDTH 14.9 % (11.0-15.5); WHITE BLOOD COUNT (AUTO) 7.1 K/uL (4.8-10.8)
[2025-08-18 10:58] LABS: CREATININE 0.8 mg/dL (0.5-1.3); GLOMERULAR FILTR. RATE CALC 105.0 mL/min (>90); GLUCOSE,RANDOM 122.0 mg/dL (70-105); SODIUM SERUM 142.0 mmol/L (136-145); UREA NITROGEN, BLOOD 20.0 mg/dL (7-18)
--- NOTE | 2025-08-18 11:34 | NUR ---
HOME MEDS ENTERED, MADE COPY OF LIST AND PUT THEM ON PATIENTS CHART, PATIENT RESTING IN BED, CALL LIGHT IN REACH
[2025-08-18] MEDS: AZITHROMYCIN 500MG+NS 250ML 250 ML IVPB STA (12:00)
--- NOTE | 2025-08-18 12:12 | HMCIMG ---
EXAM: CR Chest, 1 View. CLINICAL HISTORY: SHORTNESS A BREATH/COUGH COMPARISON: 05/29 17:57 EDT FINDINGS: LUNGS: Shallow lung volumes. PLEURAL SPACES: No pleural effusion or pneumothorax. MEDIASTINUM: The cardiomediastinal silhouette is within normal limits. BONES: No aggressive appearing osseous lesion seen. IMPRESSION: Shallow lung volumes Limit evaluation. Interstitial densities in the bilateral lung bases are nonspecific , may represent mild pulmonary edema /Gogo
--- NOTE | 2025-08-18 12:20 | HP ---
[facility] HISTORY & PHYSICAL Date Patient Seen: Aug 18, 2025 Time of Visit: 12:20 Supervising Physician: Dr. Rea Primary Care Physician: Dr. 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 He was brought in from his nursing facility after receiving a week's course of azithromycin without resolution of the patient's respiratory symptoms. Upon evaluation in the emergency department he was found to have community-acquired pneumonia, as the patient has failed outpatient treatment with azithromycin we have upgraded the patient's antibiotic treatment as Zosyn at this time, pending sputum culture for susceptibility testing. Patient with acute dehydration, placed on IV fluid hydration in the ED. Patient's respirations are even and unlabored, moderate wheezing heard left greater than right. Patient's saturations are even and unlabored on room air. Per reports at bedside from the provider patient has significant cough and sputum production however patient has a habit of swallowing his sputum, if we are unable to obtain sputum culture through conservative measures we may attempt suction in order to better treat the patient's resistant pneumonia. He remains on nebulizer treatments at this time. Plan Continue Zosyn antibiotic 3.375 mg q.8 hours Obtain sputum culture Continue nebulizer treatments IV fluid hydration DVT prophylaxis GI prophylaxis Bed rest Patient has nonverbal status Disposition is back to nursing facility once medically cleared PAST MEDICAL HX: see above PAST SURGICAL HX: noncontributory SOCIAL HISTORY: No tobacco, ETOH, or illicit drug use Coded Allergies: No Known Drug Allergies (Unverified Allergy, 01/27/13) REVIEW OF SYSTEMS: 12 point ROS reviewed with patient. Pertinent positives mentioned above. Otherwise negative. PHYSICAL EXAM: GENERAL: alert, weak, awake oriented x 3 HEENT: EOMI, Sclera non icteric, moist mucosa NECK: Supple, no JVD, trachea midline LUNGS: Clear breath sounds bilaterally. No wheezes HEART: Regular rate and rhythm. Normal S1 and S2, without murmurs ABD: Abdomen soft, nontender. Bowel sounds present EXT: No clubbing cyanosis or edema NEURO: Alert and oriented to person, follows commands Vital Signs (last 8hr) Date Time Temp Pulse Resp B/P (MAP) Pulse Ox O2 Delivery O2 Flow Rate FiO2 08/18/25 12:01 97.5 55 12 92/43 98 Room Air* 0 21 08/18/25 10:57 97.9 63 12 95/40 99 Room Air* 0 21 08/18/25 10:16 97.2 75 14 83/47 98 Room Air 0 LABS: Hematology Labs: Test 08/18/25 10:34 Range/Units White Blood Count 7.1 4.8-10.8 K/uL Red Blood Count 3.47 L 4.50-6.20 MIL/uL Hemoglobin 12.1 L 14.0-18.0 g/dL Hematocrit 35.9 L 42-54 % Mean Corpuscular Volume 103.5 H 79-99 fL Mean Corpuscular Hemoglobin 34.9 H 27.0-33.0 pg Mean Corpuscular Hemoglobin Concent 33.7 32.0-36.0 g/dL Red Cell Distribution Width 14.9 11.0-15.5 % Platelet Count 169 130-400 K/uL Mean Platelet Volume 12.7 H 7.5-10.5 fL Immature Granulocyte % (Auto) 0.7 0-1 % Neutrophils (%) (Auto) 78.9 H 40.0-77.0 % Lymphocytes (%) (Auto) 14.0 L 21.0-51.0 % Monocytes (%) (Auto) 5.7 3.0-13.0 % Eosinophils (%) (Auto) 0.6 0.0-8.0 % Basophils (%) (Auto) 0.1 0.0-5.0 % Neutrophils # (Auto) 5.6 1.8-7.7 K/uL Lymphocytes # (Auto) 1.0 1.0-4.8 K/uL Monocytes # (Auto) 0.4 0.1-1.0 K/uL Eosinophils # (Auto) 0.04 0.00-0.70 K/uL Basophils # (Auto) 0.01 0.00-0.20 K/uL Absolute Immature Granulocyte (auto 0.05 0-1 K/uL Nucleated Red Blood Cells 0.0 0.0-0.19 % Chemistry Labs: Test 08/18/25 10:34 Range/Units Sodium Level 142 136-145 mmol/L Potassium Level 3.6 3.5-5.1 mmol/L Chloride Level 105 101-111 mmol/L Carbon Dioxide Level 33 H 21-32 mmol/L Blood Urea Nitrogen 20 H 7-18 mg/dL Creatinine 0.8 0.5-1.3 mg/dL Glomerular Filtration Rate Calc 105 >90 mL/min Random Glucose 122 H 70-105 mg/dL Lactic Acid Level 1.5 0.8-2.5 mmol/L Total Calcium 8.6 8.5-10.1 mg/dL Troponin I High Sensitivity 14 4-75 ng/L B-Type Natriuretic Peptide 60 0-100 pg/mL DIAGNOSTICS / RADIOLOGY RESULTS: [ ] PLAN NEURO: Minimize central acting medications as possible. Maintain fall precautions, adequate lighting during the day PULMONARY: Supplemental 02 as needed. Maintain aspiration precautions at all times CARDIOVASCULAR: Follow hemodynamics. Vital signs per facility protocol GI & NUTRITION: Continue with nutritional support. Continue stool softeners and laxatives as needed. KIDNEYS & ELECTROLYTES: Strict monitoring of intake, output and overall fluid balance. Avoid nephrotoxic medications to the extent possible. Medications to be dosed according to renal function. Monitor electrolytes and replace as needed ENDOCRINE: Maintain blood glucose between 100-180 at all times. Hypoglycemia protocol in place INFECTIOUS DISEASE: Trend temperature, WBC and procalcitonin level Follow cultures, deescalate antibiotics as soon as possible. Panculture if new onset fever ONCOLOGY/HEMATOLOGY/COAGULATION: Monitor for s/s of bleeding Monitor hemoglobin, coagulation studies as needed SKIN: Pressure ulcer prevention per facility protocol Specialty mattress ORTHO/REHAB: Continue PT/OT Prophylaxis: Continue GI and DVT prophylaxis Code Status: Full Resuscitation Disposition: TBD Other: Total patient care time exceeds 35 minutes excluding all procedures. LISSET SILVERMAN PAC Aug 18, 2025 12:20
[2025-08-18] MEDS ORDERED: LIDOCAINE HCL 2% VISCOUS 30 ML, MAG/ALUM/SIMETH 30ML 30 ML, DICYCLOMINE HCL 20 MG PO PRN (12:30)
[2025-08-18] MEDS ORDERED: LACTULOSE 20 GM/30 ML UDCUP PO PRN (12:30)
[2025-08-18] MEDS ORDERED: ARTIFICAL TEARS SOL 15 ML OP PRN (12:30)
[2025-08-18] MEDS ORDERED: NITROGLYCERIN 0.4 MG SL TAB SL PRN (12:30)
[2025-08-18] MEDS ORDERED: MAG/ALUM/SIMETH 30 ML UDCUP PO PRN (12:30)
[2025-08-18] MEDS ORDERED: LOPERAMIDE HCL 2 MG CAP PO PRN (12:30)
[2025-08-18] MEDS: AZITHROMYCIN 500MG+NS 250ML 250 ML IVPB SCH (12:30)
[2025-08-18] MEDS ORDERED: BENZOCAINE/MENTH/CETYLPYRD CL 1 EACH LOZENGE MM PRN (12:30)
--- NOTE | 2025-08-18 13:04 | EKG ---
[facility] Test Date: 2025-08-18 Test Time: 10:30:57 Pat Name: STEPHEN OLMEDO Department: [facility] Room: 303 Gender: M Cart Driver: [id number] Requested By: JOLLY BA Order Number: [id number] Reading MD: Juan Carlos Magana Measurements Intervals [place] Rate: 57 P: 63 [place]: 150 QRS: 14 QRSD: 104 T: -17 QT: 490 QTc: 479 Interpretive Statements Sinus rhythm Borderline repol abnormality, diffuse leads Compared to ECG 05/29/2025 09:15:16 Possible ischemia no longer present ST (T wave) deviation no longer present Myocardial infarct finding no longer present Electronically Signed On 08-23-2025 13:03:34 [employer] BUSINESS [employer] by Juan Carlos Magana Please click the below link to view image of tracing.
[2025-08-18] MEDS: ALBUTEROL 0.083% 2.5 MG/3 ML INH IH ONE (13:18)
--- NOTE | 2025-08-18 14:23 | NUR ---
DCP:[facility] Pt currently lives at [facility]. pt has a wheelchair at home that they use to move him. Pt has a providers that work with him at the home and they assist with all ADLs. PCP is Dr. Liz Louis and uses [facility] for any RX needs. At [place] pt will return to the retirement and they have a van to assist with transportation.
[2025-08-18] MEDS: ZOSYN 3.375GM +NS 50ML IVPB SCH (14:25)
--- NOTE | 2025-08-18 14:53 | NUR ---
CALLED AND GAVE REPORT TO CRISTIAN CAREY RN Addendum: 08/18/25 at 1453 haydee DIAZ SENT WITH PATIENT
[2025-08-18] MEDS ORDERED: DOXYCYCLINE 100MG+NS 250ML 250 ML IV SCH (17:00)
[2025-08-18] MEDS: SODIUM CHLORIDE 3% FOR INHALATION 4 ML/AMP VIAL.NEB IH ONE ×3 (17:01→23:27)
--- NOTE | 2025-08-18 17:15 | NUR ---
ATTEMPTED TO CONTACT NURSE JOHNNA @ [phone], FROM [facility], TO GET PATIENT'S MEDICAL AND SURGICAL HISTORY FOR THE ADMISSION PACKET. THERE WAS NO ANSWER AND THE VOICEMAIL BOX WAS FULL.
[2025-08-18] MEDS: DOXYCYCLINE 100MG+NS 250ML 250 ML IV SCH (19:09)
[2025-08-18] MEDS: Carboxymethylcellulos/Glycerin (Refresh Optive Eye Drops) OP SCH (21:00)
[2025-08-18] MEDS ORDERED: FAMOTIDINE 20MG VIAL IV SCH (21:00)
[2025-08-18] MEDS: MELATONIN 5 MG TABLET PO SCH (21:12)
[2025-08-18] MEDS: FAMOTIDINE 20MG TAB PO SCH (21:12)
[2025-08-19] VITALS (11 sets, daily range): BP systolic 98–117; BP diastolic 52–73; PULSE 51–68; RESP 18–20; TEMP 97.3–98.1; O2SAT 96–99
[2025-08-19 04:47] LABS: NUCLEATED RED BLOOD CELLS 0.0 % (0.0-0.19); PLATELET COUNT (AUTO) 136 K/uL (130-400); RED BLOOD CELL COUNT(AUTO) 3.26 MIL/uL (4.50-6.20); RED CELL DISTRIBUTION WIDTH 14.6 % (11.0-15.5); WHITE BLOOD COUNT (AUTO) 3.8 K/uL (4.8-10.8)
[2025-08-19 05:02] LABS: CREATININE 0.8 mg/dL (0.5-1.3); GLOMERULAR FILTR. RATE CALC 105.0 mL/min (>90); GLUCOSE,RANDOM 67.0 mg/dL (70-105); SODIUM SERUM 143.0 mmol/L (136-145); UREA NITROGEN, BLOOD 14.0 mg/dL (7-18)
[2025-08-19] MEDS: TIMOLOL MALEATE 0.5% 5 ML BOTTLE OS SCH (09:00)
--- NOTE | 2025-08-19 09:17 | PN ---
[facility] PROGRESS NOTE Date Patient Seen: Aug 19, 2025 Time of Visit: 09:17 Supervising Physician: Dr. Rea Primary Care Physician: Dr. 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 Hypothyroidism Chronic otitis media GERD Seasonal allergies Dysphagia on PEG tube Urinary frequency Obstructive sleep apnea INTERVAL HISTORY: Patient evaluated at bedside, currently on room air, patient is nonverbal, but he does not appear to be in any acute distress at this time, Patient's white count today is 3.8, with a hemoglobin of 11.2, He continues on zosyn and doxycycline today for community which failed outpatient treatment at his nursing facility, At this time, we will continue with medical management, no changes to treatment plan, Pending sputum culture, although patient is difficult to obtain sputum from as he has a tendency to swallow whatever he expectorates, Nursing staff updated, Plan Continue antibiotics Pending sputum culture Follow morning labs Continue nebulizers REVIEW OF SYSTEMS: 12 point ROS reviewed with patient. Pertinent positives mentioned above. Otherwise negative. PHYSICAL EXAM: GENERAL: alert, weak, awake oriented x 3 HEENT: EOMI, Sclera non icteric, moist mucosa NECK: Supple, no JVD, trachea midline LUNGS: Clear breath sounds bilaterally. No wheezes HEART: Regular rate and rhythm. Normal S1 and S2, without murmurs ABD: Abdomen soft, nontender. Bowel sounds present EXT: No clubbing cyanosis or edema NEURO: Alert and oriented to person, follows commands Vital Signs (last 8hr) Date Time Temp Pulse Resp B/P (MAP) Pulse Ox O2 Delivery O2 Flow Rate FiO2 08/19/25 08:00 98.1 51 20 104/70 96 Room Air 08/19/25 06:53 55 18 N/A Room Air 21 08/19/25 06:50 55 18 08/19/25 04:00 98.1 58 18 112/73 98 LABS: Hematology Labs: Test 08/19/25 04:26 08/18/25 10:34 Range/Units White Blood Count 3.8 #L 4.8-10.8 K/uL Red Blood Count 3.26 L 4.50-6.20 MIL/uL Hemoglobin 11.2 L 14.0-18.0 g/dL Hematocrit 34.6 L 42-54 % Mean Corpuscular Volume 106.1 H 79-99 fL Mean Corpuscular Hemoglobin 34.4 H 27.0-33.0 pg Mean Corpuscular Hemoglobin Concent 32.4 32.0-36.0 g/dL Red Cell Distribution Width 14.6 11.0-15.5 % Platelet Count 136 130-400 K/uL Mean Platelet Volume 12.1 H 7.5-10.5 fL Nucleated Red Blood Cells 0.0 0.0-0.19 % Red Blood Cell Morphology See comments Immature Granulocyte % (Auto) 0.7 0-1 % Neutrophils (%) (Auto) 78.9 H 40.0-77.0 % Lymphocytes (%) (Auto) 14.0 L 21.0-51.0 % Monocytes (%) (Auto) 5.7 3.0-13.0 % Eosinophils (%) (Auto) 0.6 0.0-8.0 % Basophils (%) (Auto) 0.1 0.0-5.0 % Neutrophils # (Auto) 5.6 1.8-7.7 K/uL Lymphocytes # (Auto) 1.0 1.0-4.8 K/uL Monocytes # (Auto) 0.4 0.1-1.0 K/uL Eosinophils # (Auto) 0.04 0.00-0.70 K/uL Basophils # (Auto) 0.01 0.00-0.20 K/uL Absolute Immature Granulocyte (auto 0.05 0-1 K/uL Chemistry Labs: Test 08/19/25 04:26 08/18/25 10:34 Range/Units Sodium Level 143 136-145 mmol/L Potassium Level 4.0 3.5-5.1 mmol/L Chloride Level 109 101-111 mmol/L Carbon Dioxide Level 27 21-32 mmol/L Blood Urea Nitrogen 14 7-18 mg/dL Creatinine 0.8 0.5-1.3 mg/dL Glomerular Filtration Rate Calc 105 >90 mL/min Random Glucose 67 L 70-105 mg/dL Total Calcium 8.3 L 8.5-10.1 mg/dL Lactic Acid Level 1.5 0.8-2.5 mmol/L Troponin I High Sensitivity 14 4-75 ng/L B-Type Natriuretic Peptide 60 0-100 pg/mL Procalcitonin 0.12 0.05-0.5 ng/mL DIAGNOSTICS / RADIOLOGY RESULTS: [ ] PLAN NEURO: Minimize central acting medications as possible. Maintain fall precautions, adequate lighting during the day PULMONARY: Supplemental 02 as needed. Maintain aspiration precautions at all times CARDIOVASCULAR: Follow hemodynamics. Vital signs per facility protocol GI & NUTRITION: Continue with nutritional support. Continue stool softeners and laxatives as needed. KIDNEYS & ELECTROLYTES: Strict monitoring of intake, output and overall fluid balance. Avoid nephrotoxic medications to the extent possible. Medications to be dosed according to renal function. Monitor electrolytes and replace as needed ENDOCRINE: Maintain blood glucose between 100-180 at all times. Hypoglycemia protocol in place INFECTIOUS DISEASE: Trend temperature, WBC and procalcitonin level Follow cultures, deescalate antibiotics as soon as possible. Panculture if new onset fever ONCOLOGY/HEMATOLOGY/COAGULATION: Monitor for s/s of bleeding Monitor hemoglobin, coagulation studies as needed SKIN: Pressure ulcer prevention per facility protocol Specialty mattress ORTHO/REHAB: Continue PT/OT Prophylaxis: Continue GI and DVT prophylaxis Code Status: Full Resuscitation Disposition: TBD Other: Total patient care time exceeds 35 minutes excluding all procedures. LISSET SILVERMAN PAC Aug 19, 2025 09:17
[2025-08-19] MEDS: LORATAdine 10 mg 10 MG TABLET GT SCH (09:21)
[2025-08-19] MEDS: LACTULOSE 20 GM/30 ML UDCUP GT SCH (09:21)
[2025-08-19] MEDS: FAMOTIDINE 20MG VIAL IV SCH (09:22)
[2025-08-19] MEDS: CYANOCOBALAMIN (VITAMIN B-12) 1,000 MCG TABLET GT SCH (09:22)
[2025-08-19] MEDS ORDERED: PHARMACY COMMUNICATION 1 EACH EACH MISC SCH (11:00)
[2025-08-20] VITALS (11 sets, daily range): BP systolic 101–142; BP diastolic 42–68; PULSE 52–77; RESP 12–19; TEMP 97.3–98.4; O2SAT 93–99
[2025-08-20 04:40] LABS: NUCLEATED RED BLOOD CELLS 0.0 % (0.0-0.19); PLATELET COUNT (AUTO) 153.0 K/uL (130-400); RED BLOOD CELL COUNT(AUTO) 3.22 MIL/uL (4.50-6.20); RED CELL DISTRIBUTION WIDTH 14.6 % (11.0-15.5); WHITE BLOOD COUNT (AUTO) 3.3 K/uL (4.8-10.8)
[2025-08-20 04:57] LABS: CREATININE 0.9 mg/dL (0.5-1.3); GLOMERULAR FILTR. RATE CALC 101.0 mL/min (>90); GLUCOSE,RANDOM 85.0 mg/dL (70-105); SODIUM SERUM 141.0 mmol/L (136-145); UREA NITROGEN, BLOOD 19.0 mg/dL (7-18)
--- NOTE | 2025-08-20 09:28 | PN ---
[facility] PROGRESS NOTE Date Patient Seen: Aug 20, 2025 Time of Visit: 09:28 Supervising Physician: Dr. Hines Primary Care Physician: Dr. 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 On auscultation pain shins lungs have severe crackles and rhonchi, he is coughing and expectorating but we are still unable to gain a sputum culture because the patient consistently swallows his sputum. Respiratory has been unable to collect sputum as well. His white count remains within normal limits, we will continue with the current treatment regimen and evaluate with a chest x-ray in the morning for interval improvement. No family or provider at bedside today. Plan Continue antibiotics Pending sputum culture Follow morning labs Continue nebulizers REVIEW OF SYSTEMS: 12 point ROS reviewed with patient. Pertinent positives mentioned above. Otherw ise negative. PHYSICAL EXAM: GENERAL: alert, weak, awake oriented x 3 HEENT: EOMI, Sclera non icteric, moist mucosa NECK: Supple, no JVD, trachea midline LUNGS: Clear breath sounds bilaterally. No wheezes HEART: Regular rate and rhythm. Normal S1 and S2, without murmurs ABD: Abdomen soft, nontender. Bowel sounds present EXT: No clubbing cyanosis or edema NEURO: Alert and oriented to person, follows commands Vital Signs (last 8hr) Date Time Temp Pulse Resp B/P (MAP) Pulse Ox O2 Delivery O2 Flow Rate FiO2 08/20/25 06:26 59 18 08/20/25 06:26 59 18 N/A Room Air 21 08/20/25 04:00 98.2 55 12 110/43 95 Room Air LABS: Hematology Labs: Test 08/20/25 04:27 08/19/25 04:26 08/18/25 10:34 Range/Units White Blood Count 3.3 L 4.8-10.8 K/uL Red Blood Count 3.22 L 4.50-6.20 MIL/uL Hemoglobin 11.1 L 14.0-18.0 g/dL Hematocrit 33.3 L 42-54 % Mean Corpuscular Volume 103.4 H 79-99 fL Mean Corpuscular Hemoglobin 34.5 H 27.0-33.0 pg Mean Corpuscular Hemoglobin Concent 33.3 32.0-36.0 g/dL Red Cell Distribution Width 14.6 11.0-15.5 % Platelet Count 153 130-400 K/uL Mean Platelet Volume 12.5 H 7.5-10.5 fL Nucleated Red Blood Cells 0.0 0.0-0.19 % Red Blood Cell Morphology See comments Immature Granulocyte % (Auto) 0.7 0-1 % Neutrophils (%) (Auto) 78.9 H 40.0-77.0 % Lymphocytes (%) (Auto) 14.0 L 21.0-51.0 % Monocytes (%) (Auto) 5.7 3.0-13.0 % Eosinophils (%) (Auto) 0.6 0.0-8.0 % Basophils (%) (Auto) 0.1 0.0-5.0 % Neutrophils # (Auto) 5.6 1.8-7.7 K/uL Lymphocytes # (Auto) 1.0 1.0-4.8 K/uL Monocytes # (Auto) 0.4 0.1-1.0 K/uL Eosinophils # (Auto) 0.04 0.00-0.70 K/uL Basophils # (Auto) 0.01 0.00-0.20 K/uL Absolute Immature Granulocyte (auto 0.05 0-1 K/uL Chemistry Labs: Test 08/20/25 04:27 08/18/25 10:34 Range/Units Sodium Level 141 136-145 mmol/L Potassium Level 4.1 3.5-5.1 mmol/L Chloride Level 108 101-111 mmol/L Carbon Dioxide Level 28 21-32 mmol/L Blood Urea Nitrogen 19 H 7-18 mg/dL Creatinine 0.9 0.5-1.3 mg/dL Glomerular Filtration Rate Calc 101 >90 mL/min Random Glucose 85 70-105 mg/dL Total Calcium 8.2 L 8.5-10.1 mg/dL Lactic Acid Level 1.5 0.8-2.5 mmol/L Troponin I High Sensitivity 14 4-75 ng/L B-Type Natriuretic Peptide 60 0-100 pg/mL Procalcitonin 0.12 0.05-0.5 ng/mL DIAGNOSTICS / RADIOLOGY RESULTS: [ ] PLAN NEURO: Minimize central acting medications as possible. Maintain fall precautions, adequate lighting during the day PULMONARY: Supplemental 02 as needed. Maintain aspiration precautions at all times CARDIOVASCULAR: Follow hemodynamics. Vital signs per facility protocol GI & NUTRITION: Continue with nutritional support. Continue stool softeners and laxatives as needed. KIDNEYS & ELECTROLYTES: Strict monitoring of intake, output and overall fluid balance. Avoid nephrotoxic medications to the extent possible. Medications to be dosed according to renal function. Monitor electrolytes and replace as needed ENDOCRINE: Maintain blood glucose between 100-180 at all times. Hypoglycemia protocol in place INFECTIOUS DISEASE: Trend temperature, WBC and procalcitonin level Follow cultures, deescalate antibiotics as soon as possible. Panculture if new onset fever ONCOLOGY/HEMATOLOGY/COAGULATION: Monitor for s/s of bleeding Monitor hemoglobin, coagulation studies as needed SKIN: Pressure ulcer prevention per facility protocol Specialty mattress ORTHO/REHAB: Continue PT/OT Prophylaxis: Continue GI and DVT prophylaxis Code Status: Full Resuscitation Disposition: TBD Other: Total patient care time exceeds 35 minutes excluding all procedures. LISSET SILVERMAN PAC Aug 20, 2025 09:28
[2025-08-20] MEDS: guaiFENesin-DM 200/20MG 10ML PO PRN (10:48)
--- NOTE | 2025-08-20 13:40 | NUR ---
SPEECH TRIGGER COMPLETED / PNA Pt IS A 54 Y.O. MALE ADMITTED SECONDARY TO [facility]/PNA. Pt HAS A PAST MEDICAL HISTORY SIGNIFICANT FOR GERD, DOWN SYNDROME, PSYCHOTIC DISORDER AND MODERATE INTELLECTUAL DISABILITY. PATIENT PRESENTED WITH SHALLOW LUNG VOLUMES ON MOST RECENT CHEST X-RAY (08/18/2025). PER NURSE KOLB, Pt NPO AND FEEDING VIA PEG TUBE. Pt WITH Hx OF DYSPHAGIA SINCE 2016 EVENTUALLY REQUIRING PEG TUBE PLACEMENT. RECOMMEND CONTINUE WITH PEG TUBE FEEDINGS AT THIS TIME. SPEECH THERAPY SERVICES NOT WARRANTED. ALL QUESTIONS ANSWERED. Addendum: 08/20/[address] [facility] FONTAINE Amended: Links added.
--- NOTE | 2025-08-20 16:20 | HMCIMG ---
EXAM: XR Chest, 1 View(s). CLINICAL HISTORY: SHORTNESS OF BREATH/COUGH COMPARISON: CR: CHEST 1VW 08/18/2025 FINDINGS: LUNGS: Trace bilateral perihilar infiltrates are seen. No consolidation. PLEURAL SPACES: No pleural effusion or pneumothorax. HEART: The heart size is normal. BONES: No acute osseous abnormality. IMPRESSION: 1. Trace bilateral perihilar infiltrates slightly decreased compared to prior exam. /[place]
[2025-08-21] VITALS (15 sets, daily range): BP systolic 83–114; BP diastolic 52–64; PULSE 58–95; RESP 12–20; TEMP 97.4–97.9; O2SAT 95–98
[2025-08-21 05:36] LABS: NUCLEATED RED BLOOD CELLS 0.0 % (0.0-0.19); PLATELET COUNT (AUTO) 140.0 K/uL (130-400); RED BLOOD CELL COUNT(AUTO) 3.32 MIL/uL (4.50-6.20); RED CELL DISTRIBUTION WIDTH 14.3 % (11.0-15.5); WHITE BLOOD COUNT (AUTO) 4.0 K/uL (4.8-10.8)
[2025-08-21 05:53] LABS: CREATININE 0.7 mg/dL (0.5-1.3); GLOMERULAR FILTR. RATE CALC 109.0 mL/min (>90); GLUCOSE,RANDOM 80.0 mg/dL (70-105); SODIUM SERUM 141.0 mmol/L (136-145); UREA NITROGEN, BLOOD 16.0 mg/dL (7-18)
[2025-08-21] MEDS: DOXYCYCLINE 100MG+NS 250ML 250 ML IV SCH (10:27)
[2025-08-21] MEDS: ZOSYN 3.375GM +NS 50ML IVPB SCH (10:28)
--- NOTE | 2025-08-21 12:59 | PN ---
[facility] PROGRESS NOTE Date Patient Seen: Aug 21, 2025 Time of Visit: 12:57 Supervising Physician: Dr Angelito Gunn Primary Care Physician: Dr. 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 Hypothyroidism Chronic otitis media GERD Seasonal allergies Dysphagia on PEG tube Urinary frequency Obstructive sleep apnea INTERVAL HISTORY: Patient is seen at bedside today, patient resting, comfortable, currently on nasal cannula at 2 L with good saturations Nursing reports no acute events Nursing reports unable to get sputum cultures, patient diminished at bilateral bases, no rhonchi this morning No family members present Afebrile Vital signs stable Plan Continue antibiotics Pending sputum culture Follow morning labs Continue nebulizers REVIEW OF SYSTEMS: 12 point ROS reviewed with patient. Pertinent positives mentioned above. Otherwise negative. PHYSICAL EXAM: GENERAL: alert, weak, awake oriented x 3 HEENT: EOMI, Sclera non icteric, moist mucosa NECK: Supple, no JVD, trachea midline LUNGS: Clear breath sounds bilaterally. No wheezes HEART: Regular rate and rhythm. Normal S1 and S2, without murmurs ABD: Abdomen soft, nontender. Bowel sounds present EXT: No clubbing cyanosis or edema NEURO: Alert and oriented to person, follows commands Vital Signs (last 8hr) Date Time Temp Pulse Resp B/P (MAP) Pulse Ox O2 Delivery O2 Flow Rate FiO2 08/21/25 12:00 97.3 58 16 88/52 97 Room Air 08/21/25 11:38 70 18 N/A Room Air 21 08/21/25 11:26 70 18 08/21/25 08:00 97.5 75 17 83/56 96 Room Air 08/21/25 06:50 72 20 LABS: Hematology Labs: Test 08/21/25 05:20 Range/Units White Blood Count 4.0 L 4.8-10.8 K/uL Red Blood Count 3.32 L 4.50-6.20 MIL/uL Hemoglobin 11.5 L 14.0-18.0 g/dL Hematocrit 33.7 L 42-54 % Mean Corpuscular Volume 101.5 H 79-99 fL Mean Corpuscular Hemoglobin 34.6 H 27.0-33.0 pg Mean Corpuscular Hemoglobin Concent 34.1 32.0-36.0 g/dL Red Cell Distribution Width 14.3 11.0-15.5 % Platelet Count 140 130-400 K/uL Mean Platelet Volume 11.9 H 7.5-10.5 fL Nucleated Red Blood Cells 0.0 0.0-0.19 % Chemistry Labs: Test 08/21/25 05:20 Range/Units Sodium Level 141 136-145 mmol/L Potassium Level 4.1 3.5-5.1 mmol/L Chloride Level 108 101-111 mmol/L Carbon Dioxide Level 27 21-32 mmol/L Blood Urea Nitrogen 16 7-18 mg/dL Creatinine 0.7 0.5-1.3 mg/dL Glomerular Filtration Rate Calc 109 >90 mL/min Random Glucose 80 70-105 mg/dL Total Calcium 8.3 L 8.5-10.1 mg/dL DIAGNOSTICS / RADIOLOGY RESULTS: [ ] PLAN NEURO: Minimize central acting medications as possible. Maintain fall precautions, adequate lighting during the day PULMONARY: Supplemental 02 as needed. Maintain aspiration precautions at all times CARDIOVASCULAR: Follow hemodynamics. Vital signs per facility protocol GI & NUTRITION: Continue with nutritional support. Continue stool softeners and laxatives as needed. KIDNEYS & ELECTROLYTES: Strict monitoring of intake, output and overall fluid balance. Avoid nephrotoxic medications to the extent possible. Medications to be dosed according to renal function. Monitor electrolytes and replace as needed ENDOCRINE: Maintain blood glucose between 100-180 at all times. Hypoglycemia protocol in place INFECTIOUS DISEASE: Trend temperature, WBC and procalcitonin level Follow cultures, deescalate antibiotics as soon as possible. Panculture if new onset fever ONCOLOGY/HEMATOLOGY/COAGULATION: Monitor for s/s of bleeding Monitor hemoglobin, coagulation studies as needed SKIN: Pressure ulcer prevention per facility protocol Specialty mattress ORTHO/REHAB: Continue PT/OT Prophylaxis: Continue GI and DVT prophylaxis Code Status: Full Resuscitation Disposition: GRACE CHAMPION PAC Aug 21, 2025 12:59
--- NOTE | 2025-08-21 17:32 | NUR ---
MIDODRINE MIDODRINE HELD IT WAS NOT NEEDED.
[2025-08-22] VITALS (15 sets, daily range): BP systolic 82–101; BP diastolic 44–58; PULSE 67–87; RESP 18–20; TEMP 97.8–98.7; O2SAT 91–100
[2025-08-22 05:07] LABS: IMMATURE GRANULOCYTE ABSOLUTE 0.02 K/uL (0-1); NUCLEATED RED BLOOD CELLS 0.0 % (0.0-0.19); PLATELET COUNT (AUTO) 133 K/uL (130-400); RED BLOOD CELL COUNT(AUTO) 3.28 MIL/uL (4.50-6.20); RED CELL DISTRIBUTION WIDTH 14.6 % (11.0-15.5); WHITE BLOOD COUNT (AUTO) 3.0 K/uL (4.8-10.8)
[2025-08-22 05:34] LABS: ASPARTATE AMINOTRANSFERASE 21.0 U/L (10-37); CREATININE 0.9 mg/dL (0.5-1.3); GLOMERULAR FILTR. RATE CALC 101.0 mL/min (>90); GLUCOSE,RANDOM 99.0 mg/dL (70-105); SODIUM SERUM 142.0 mmol/L (136-145); TOTAL PROTEIN, SERUM 6.3 g/dL (6.0-8.3); UREA NITROGEN, BLOOD 17.0 mg/dL (7-18)
[2025-08-22 05:58] LABS: BAND NEUTROPHILS % (MANUAL) 3 % (0-2); EOSINOPHILS % (MANUAL) 1 % (1-6); LYMPHOCYTES % (MANUAL) 35 % (22-44); MAN.DIFF COMMENT-IMPRESSION MANUAL DIFFERENTIAL; MONOCYTES % (MANUAL) 5 % (2-9); PLATELET MORPHOLOGY COMMENT ADEQUATE; SEGMENTED NEUTROPHILS % 56 % (40-70)
--- NOTE | 2025-08-22 09:11 | PN ---
[facility] PROGRESS NOTE Date Patient Seen: Aug 22, 2025 Time of Visit: 09:11 Supervising Physician: Dr. Gunn Primary Care Physician: Dr. 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 He continues on antibiotics at this time in his improved. Lungs are bilaterally clear to auscultation and patient has minimal cough. We will begin the process of him discharging back to his detention, case management notified. Plan to discharge with several days of Levaquin to complete antibiotic treatment. No sputum culture was able to be collected on this admission. Plan Continue antibiotics CM to arrange DC back to detention Follow morning labs Continue nebulizers REVIEW OF SYSTEMS: 12 point ROS reviewed with patient. Pertinent positives mentioned above. Otherwise negative. PHYSICAL EXAM: GENERAL: alert, weak, awake oriented x 3 HEENT: EOMI, Sclera non icteric, moist mucosa NECK: Supple, no JVD, trachea midline LUNGS: Clear breath sounds bilaterally. No wheezes HEART: Regular rate and rhythm. Normal S1 and S2, without murmurs ABD: Abdomen soft, nontender. Bowel sounds present EXT: No clubbing cyanosis or edema NEURO: Alert and oriented to person, follows commands Vital Signs (last 8hr) Date Time Temp Pulse Resp B/P (MAP) Pulse Ox O2 Delivery O2 Flow Rate FiO2 08/22/25 07:46 97.9 72 18 88/45 97 Room Air 08/22/25 07:13 70 18 08/22/25 07:12 70 18 N/A Room Air 21 08/22/25 04:32 98.4 67 20 101/57 100 Room Air LABS: Hematology Labs: Test 08/22/25 04:27 Range/Units White Blood Count 3.0 L 4.8-10.8 K/uL Red Blood Count 3.28 L 4.50-6.20 MIL/uL Hemoglobin 11.2 L 14.0-18.0 g/dL Hematocrit 33.7 L 42-54 % Mean Corpuscular Volume 102.7 H 79-99 fL Mean Corpuscular Hemoglobin 34.1 H 27.0-33.0 pg Mean Corpuscular Hemoglobin Concent 33.2 32.0-36.0 g/dL Red Cell Distribution Width 14.6 11.0-15.5 % Platelet Count 133 130-400 K/uL Mean Platelet Volume 12.4 H 7.5-10.5 fL Immature Granulocyte % (Auto) 0.7 0-1 % Neutrophils (%) (Auto) 50.6 40.0-77.0 % Lymphocytes (%) (Auto) 36.5 21.0-51.0 % Monocytes (%) (Auto) 10.6 3.0-13.0 % Eosinophils (%) (Auto) 1.3 0.0-8.0 % Basophils (%) (Auto) 0.3 0.0-5.0 % Neutrophils # (Auto) 1.5 L 1.8-7.7 K/uL Lymphocytes # (Auto) 1.1 1.0-4.8 K/uL Monocytes # (Auto) 0.3 0.1-1.0 K/uL Eosinophils # (Auto) 0.04 0.00-0.70 K/uL Basophils # (Auto) 0.01 0.00-0.20 K/uL Absolute Immature Granulocyte (auto 0.02 0-1 K/uL Segmented Neutrophils % 56 40-70 % Band Neutrophils % 3 H 0-2 % Lymphocytes % (Manual) 35 22-44 % Monocytes % (Manual) 5 2-9 % Eosinophils % (Manual) 1 1-6 % Nucleated Red Blood Cells 0.0 0.0-0.19 % Differential Comment MANUAL DIFFERENTIAL White Cell Morphology Comment Platelet Morphology Comment ADEQUATE Red Blood Cell Morphology See comments Chemistry Labs: Test 08/22/25 06:31 08/22/25 04:27 Range/Units Whole Blood Glucose 93 70-110 MG/DL Sodium Level 142 136-145 mmol/L Potassium Level 4.2 3.5-5.1 mmol/L Chloride Level 107 101-111 mmol/L Carbon Dioxide Level 27 21-32 mmol/L Blood Urea Nitrogen 17 7-18 mg/dL Creatinine 0.9 0.5-1.3 mg/dL Glomerular Filtration Rate Calc 101 >90 mL/min Random Glucose 99 70-105 mg/dL Total Calcium 8.3 L 8.5-10.1 mg/dL Total Bilirubin 0.4 0.2-1.0 mg/dL Aspartate Amino Transf (AST/SGOT) 21 10-37 U/L Alanine Aminotransferase (ALT/SGPT) 46 12-78 U/L Alkaline Phosphatase 126 50-136 U/L Total Protein 6.3 6.0-8.3 g/dL Albumin 2.0 L 3.5-5.0 g/dL DIAGNOSTICS / RADIOLOGY RESULTS: [ ] PLAN NEURO: Minimize central acting medications as possible. Maintain fall precautions, adequate lighting during the day PULMONARY: Supplemental 02 as needed. Maintain aspiration precautions at all times CARDIOVASCULAR: Follow hemodynamics. Vital signs per facility protocol GI & NUTRITION: Continue with nutritional support. Continue stool softeners and laxatives as needed. KIDNEYS & ELECTROLYTES: Strict monitoring of intake, output and overall fluid balance. Avoid nephrotoxic medications to the extent possible. Medications to be dosed according to renal function. Monitor electrolytes and replace as needed ENDOCRINE: Maintain blood glucose between 100-180 at all times. Hypoglycemia protocol in place INFECTIOUS DISEASE: Trend temperature, WBC and procalcitonin level Follow cultures, deescalate antibiotics as soon as possible. Panculture if new onset fever ONCOLOGY/HEMATOLOGY/COAGULATION: Monitor for s/s of bleeding Monitor hemoglobin, coagulation studies as needed SKIN: Pressure ulcer prevention per facility protocol Specialty mattress ORTHO/REHAB: Continue PT/OT Prophylaxis: Continue GI and DVT prophylaxis Code Status: Full Resuscitation Disposition: [facility] W[facility] PAC Aug 22, 2025 09:11
[2025-08-22] MEDS: ZIPRASIDONE MESYLATE 20 MG/VIAL IM PRN (12:43)
[2025-08-23] VITALS (9 sets, daily range): BP systolic 83–91; BP diastolic 42–60; PULSE 76–84; RESP 18–20; TEMP 97.8–98.3; O2SAT 94–100
[2025-08-23 06:30] LABS: IMMATURE GRANULOCYTE ABSOLUTE 0.04 K/uL (0-1); NUCLEATED RED BLOOD CELLS 0.0 % (0.0-0.19); PLATELET COUNT (AUTO) 131 K/uL (130-400); RED BLOOD CELL COUNT(AUTO) 3.36 MIL/uL (4.50-6.20); RED CELL DISTRIBUTION WIDTH 14.9 % (11.0-15.5); WHITE BLOOD COUNT (AUTO) 9.3 K/uL (4.8-10.8)
[2025-08-23 06:47] LABS: ASPARTATE AMINOTRANSFERASE 20.0 U/L (10-37); CREATININE 0.9 mg/dL (0.5-1.3); GLOMERULAR FILTR. RATE CALC 101.0 mL/min (>90); GLUCOSE,RANDOM 83.0 mg/dL (70-105); SODIUM SERUM 144.0 mmol/L (136-145); TOTAL PROTEIN, SERUM 6.4 g/dL (6.0-8.3); UREA NITROGEN, BLOOD 19.0 mg/dL (7-18)
--- NOTE | 2025-08-23 08:00 | NUR ---
BP was noted to be low. Intervention were place. Midodrine was given. Baseline BP 73/42, patient bed was elevated. BP at this time 94/54. Atul Richardson was notified.
--- NOTE | 2025-08-23 08:47 | NUR ---
# to call report to is [phone] report is called [facility] stated that they will arrange transportation back to [facility].
--- NOTE | 2025-08-23 09:22 | PN ---
[facility] PROGRESS NOTE Date Patient Seen: Aug 23, 2025 Time of Visit: 09:22 Supervising Physician: [ ] Primary Care Physician: Dr. 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 He continues on antibiotics at this time in his improved. Lungs are bilaterally clear to auscultation and patient has minimal cough. We will begin the process of him discharging back to his long term, case management notified. Plan to discharge with several days of Levaquin to complete antibiotic treatment. No sputum culture was able to be collected on this admission. Plan Continue antibiotics CM to arrange DC back to long term Follow morning labs Continue nebulizers REVIEW OF SYSTEMS: 12 point ROS reviewed with patient. Pertinent positives mentioned above. Otherwise negative. PHYSICAL EXAM: GENERAL: alert, weak, awake oriented x 3 HEENT: EOMI, Sclera non icteric, moist mucosa NECK: Supple, no JVD, trachea midline LUNGS: Clear breath sounds bilaterally. No wheezes HEART: Regular rate and rhythm. Normal S1 and S2, without murmurs ABD: Abdomen soft, nontender. Bowel sounds present EXT: No clubbing cyanosis or edema NEURO: Alert and oriented to person, follows commands Vital Signs (last 8hr) Date Time Temp Pulse Resp B/P (MAP) Pulse Ox O2 Delivery O2 Flow Rate FiO2 08/23/25 08:00 98.1 81 20 87/42 100 Room Air 08/23/25 07:26 95 Room Air* 0 21 08/23/25 07:06 84 18 N/A Room Air 21 08/23/25 07:03 84 18 08/23/25 04:08 98.2 76 18 83/51 97 Room Air 08/23/25 02:00 91/55 LABS: Hematology Labs: Test 08/23/25 06:21 08/22/25 04:27 Range/Units White Blood Count 9.3 4.8-10.8 K/uL Red Blood Count 3.36 L 4.50-6.20 MIL/uL Hemoglobin 11.4 L 14.0-18.0 g/dL Hematocrit 35.5 L 42-54 % Mean Corpuscular Volume 105.7 H 79-99 fL Mean Corpuscular Hemoglobin 33.9 H 27.0-33.0 pg Mean Corpuscular Hemoglobin Concent 32.1 32.0-36.0 g/dL Red Cell Distribution Width 14.9 11.0-15.5 % Platelet Count 131 130-400 K/uL Mean Platelet Volume 11.9 H 7.5-10.5 fL Immature Granulocyte % (Auto) 0.4 0-1 % Neutrophils (%) (Auto) 88.7 H 40.0-77.0 % Lymphocytes (%) (Auto) 5.9 L 21.0-51.0 % Monocytes (%) (Auto) 4.7 3.0-13.0 % Eosinophils (%) (Auto) 0.2 0.0-8.0 % Basophils (%) (Auto) 0.1 0.0-5.0 % Neutrophils # (Auto) 8.2 H 1.8-7.7 K/uL Lymphocytes # (Auto) 0.6 L 1.0-4.8 K/uL Monocytes # (Auto) 0.4 0.1-1.0 K/uL Eosinophils # (Auto) 0.02 0.00-0.70 K/uL Basophils # (Auto) 0.01 0.00-0.20 K/uL Absolute Immature Granulocyte (auto 0.04 0-1 K/uL Nucleated Red Blood Cells 0.0 0.0-0.19 % Segmented Neutrophils % 56 40-70 % Band Neutrophils % 3 H 0-2 % Lymphocytes % (Manual) 35 22-44 % Monocytes % (Manual) 5 2-9 % Eosinophils % (Manual) 1 1-6 % Differential Comment MANUAL DIFFERENTIAL White Cell Morphology Comment Platelet Morphology Comment ADEQUATE Red Blood Cell Morphology See comments Chemistry Labs: Test 08/23/25 06:21 08/23/25 06:02 Range/Units Sodium Level 144 136-145 mmol/L Potassium Level 4.5 3.5-5.1 mmol/L Chloride Level 108 101-111 mmol/L Carbon Dioxide Level 29 21-32 mmol/L Blood Urea Nitrogen 19 H 7-18 mg/dL Creatinine 0.9 0.5-1.3 mg/dL Glomerular Filtration Rate Calc 101 >90 mL/min Random Glucose 83 70-105 mg/dL Total Calcium 8.3 L 8.5-10.1 mg/dL Total Bilirubin 0.4 0.2-1.0 mg/dL Aspartate Amino Transf (AST/SGOT) 20 10-37 U/L Alanine Aminotransferase (ALT/SGPT) 48 12-78 U/L Alkaline Phosphatase 141 H 50-136 U/L Total Protein 6.4 6.0-8.3 g/dL Albumin 2.1 L 3.5-5.0 g/dL Whole Blood Glucose 90 70-110 MG/DL DIAGNOSTICS / RADIOLOGY RESULTS: [ ] PLAN NEURO: Minimize central acting medications as possible. Maintain fall precautions, adequate lighting during the day PULMONARY: Supplemental 02 as needed. Maintain aspiration precautions at all times CARDIOVASCULAR: Follow hemodynamics. Vital signs per facility protocol GI & NUTRITION: Continue with nutritional support. Continue stool softeners and laxatives as needed. KIDNEYS & ELECTROLYTES: Strict monitoring of intake, output and overall fluid balance. Avoid nephrotoxic medications to the extent possible. Medications to be dosed according to renal function. Monitor electrolytes and replace as needed ENDOCRINE: Maintain blood glucose between 100-180 at all times. Hypoglycemia protocol in place INFECTIOUS DISEASE: Trend temperature, WBC and procalcitonin level Follow cultures, deescalate antibiotics as soon as possible. Panculture if new onset fever ONCOLOGY/HEMATOLOGY/COAGULATION: Monitor for s/s of bleeding Monitor hemoglobin, coagulation studies as needed SKIN: Pressure ulcer prevention per facility protocol Specialty mattress ORTHO/REHAB: Continue PT/OT Prophylaxis: Continue GI and DVT prophylaxis Code Status: Full Resuscitation Disposition: [facility] Aug 23, 2025 09:22
--- NOTE | 2025-08-23 13:47 | DS ---
[facility] DISCHARGE SUMMARY Date Patient Seen: Aug 23, 2025 Time of Visit: 13:46 Supervising Physician: Dr. Gunn Primary Care Physician: Dr. Liz Louis Outpatient Specialists: [ ] Inpatient Consults: [ ] HOSPITAL COURSE: HPI (per admitting provider) Patient is a 54-year-old male with a past medical history significant for Down syndrome, psychotic disorder, moderate intellectual developmental disability as well as nonverbal status. He was brought in from his nursing facility after receiving a week's course of azithromycin without resolution of the patient's respiratory symptoms. Upon evaluation in the emergency department he was found to have community-acquired pneumonia, as the patient has failed outpatient treatment with azithromycin we have upgraded the patient's antibiotic treatment as Zosyn at this time, pending sputum culture for susceptibility testing. Patient with acute dehydration, placed on IV fluid hydration in the ED. Patient's respirations are even and unlabored, moderate wheezing heard left greater than right. Patient's saturations are even and unlabored on room air. Per reports at bedside from the provider patient has significant cough and sputum production however patient has a habit of swallowing his sputum, if we are unable to obtain sputum culture through conservative measures we may attempt suction in order to better treat the patient's resistant pneumonia. He remains on nebulizer treatments at this time. The patient was treated for the following problems: The patient was admitted for an acute pneumonia that failed outpatient treatment with azithromycin at his skilled nursing. The patient was initiated on doxycycline and zosyn and remained on these antibiotics throughout the entirety of his admission period. Patient's respiratory status has improved and his lungs are cleared of auscultation. Chest X-ray shows interval improvement of the patient's pneumonia. He's being discharged today back to his skilled nursing with a five-day course of Levaquin to complete antibiotic therapy and ensure resolution of the patient's pneumonia. 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 PCP notified of patients admission, hospital course and discharge. PHYSICAL EXAM: GENERAL: alert, weak, awake oriented x 3 HEENT: EOMI, Sclera non icteric, moist mucosa NECK: Supple, no JVD, trachea midline LUNGS: Clear breath sounds bilaterally. No wheezes HEART: Regular rate and rhythm. Normal S1 and S2, without murmurs ABD: Abdomen soft, nontender. Bowel sounds present EXT: No clubbing cyanosis or edema NEURO: Alert and oriented to person, follows commands FOLLOW-UP: Follow-up with PCP in 2-3 days RECOMMENDATIONS: See Discharge Instructions Complete oral course of antibiotics Follow up with PCP upon completion of oral antibiotics to ensure resolution of pneumonia This case was seen and discussed with my supervising physician. More than 30 minutes spent on discharge process, including evaluation of the patient, d iscussion with nursing staff, medication reconciliation and follow-up appointments LISSET SILVERMAN PAC Aug 23, 2025 13:47
== END 2025-08-23 14:30 | disposition home or self-care (01) | DRG 195 ==
LOC: EDH 10:14 → EDHIP 12:14 → 3AH 15:20 → OBSVTOIN 08-19 11:15 → 3AH 08-21 22:07
PROVIDERS: ADMIT Internal Medicine Critical Care Medicine; ATTEND Internal Medicine Critical Care Medicine
DX: J15.9 Unspecified bacterial pneumonia (principal); R13.10 Dysphagia, unspecified; D53.9 Nutritional anemia, unspecified; E11.65 Type 2 diabetes mellitus with hyperglycemia; E03.9 Hypothyroidism, unspecified; E86.0 Dehydration; G47.33 Obstructive sleep apnea (adult) (pediatric); F71 Moderate intellectual disabilities; J30.2 Other seasonal allergic rhinitis; K21.9 Gastro-esophageal reflux disease without esophagitis; K43.9 Ventral hernia without obstruction or gangrene; H91.91 Unspecified hearing loss, right ear
CPT/HCPCS: 36415; 71045; 80048; 80053; 82948; 83605; 83880; 84145; 84484; 85025; 85027; 87040; 87071; 87086; 87186; 87205; 87426; 93005; 94640; 94664; 99285; G0378; J0456; J0696; J1200; J2543; J3486; J3490; J1308